=== PATIENT | female | born 1975 | race Caucasian/White ===

== ENCOUNTER 2017-10-13 12:09 | Emergency (ER) | payer OTHER ==
[~2017-10-13] VITALS: Ht 167.6 cm; Wt 90.9 kg
[~2017-10-13 12:09] MED LIST: AMLO-512 PO; DSS100 PO; DULO30CA2 PO; GABA-531 PO; LISI-662 PO; MONT10TA21 PO; PSYL174P2 PO
[2017-10-13] MEDS ORDERED: PARO20TA24 PO (12:23)
[2017-10-13] MEDS ORDERED: BUPR100 PO (12:23)
[2017-10-13] MEDS ORDERED: IPRA4AER IH (12:23)
[2017-10-13] MEDS ORDERED: DEXAMETHASONE SOD PHOS 4 MG/ML 5 ML VIAL IM ONE (14:30)
[2017-10-13] MEDS ORDERED: ALBUTEROL SULFATE 5 MG/ML 20 ML NEB SOLN [BULK] NEB ONE (14:30)
[2017-10-13] MEDS ORDERED: IPRATROPIUM BROMIDE 0.5 MG/2.5 ML NEB SOLUTION NEB ONE (14:30)
[2017-10-13 15:20] VITALS: BP 157/94
== END 2017-10-13 15:30 | disposition home or self-care (01) ==
LOC: EMS 12:11
DX: J45.901 Unspecified asthma with (acute) exacerbation (principal); F32.9 Major depressive disorder, single episode, unspecified; Z90.49 Acquired absence of other specified parts of digestive tract
CPT/HCPCS: 94644; 96372; 99285; J1100; J7611

== ENCOUNTER 2018-03-26 08:08 | Inpatient (IN) | payer MEDICAID, OTHER ==
[~2018-03-26] VITALS: Ht 167.6 cm; Wt 99.1 kg
[2018-03-26] VITALS (15 sets, daily range): BP systolic 138–152; BP diastolic 76–86
[~2018-03-26 08:08] MED LIST changes: -AMLO-512 PO; +BUPR100 PO; -DSS100 PO; -DULO30CA2 PO; +IPRA4AER IH; -LISI-662 PO; -MONT10TA21 PO; +PARO20TA24 PO; -PSYL174P2 PO
[2018-03-26] MEDS ORDERED: HYDR-305 PO (08:24)
[2018-03-26] MEDS ORDERED: GABA-533 PO (08:24)
[2018-03-26 09:13] LABS: EOSINOPHILS % (AUTO) 3.5 % (1.0-6.0); HEMATOCRIT 44.8 % (36-46); HEMOGLOBIN 15.9 g/dL (12.0-16.0); LYMPHOCYTES # (AUTO) 1.6 K/uL (1.0-4.8); LYMPHOCYTES % (AUTO) 27.3 % (22.0-44.0); MEAN CORPUSCULAR HEMOGLOBIN 33.1 pg (26.0-34.0); MEAN CORPUSCULAR HGB CONC 35.4 G/dL (31.0-37.0); MEAN CORPUSCULAR VOLUME 94 fL (80-100); MONOCYTES # (AUTO) 0.4 K/uL (0.1-1.0); MONOCYTES % (AUTO) 6.3 % (2.0-9.0); NEUTROPHILS # (AUTO) 3.6 K/uL (1.8-7.7); NEUTROPHILS % (AUTO) 61.9 % (40.0-70.0); PLATELET COUNT (AUTO) 233 K/uL (150-450); RED CELL DISTRIBUTION WIDTH 12.8 % (11.5-14.5)
[2018-03-26 09:26] LABS: ANION GAP 7 mmol/L (8-16); CALCIUM, TOTAL 8.5 mg/dL (8.8-10.5); CARBON DIOXIDE 28 mmol/L (22-29); CHLORIDE 108 mmol/L (98-107); CREATININE 0.83 mg/dL (0.60-1.30); GLOMERULAR FILTR. RATE CALC > 60 mL/min (>60); GLUCOSE,RANDOM 99 mg/dL (70-110); POTASSIUM 3.7 mmol/L (3.5-5.1); SODIUM SERUM 143 mmol/L (136-145); UREA NITROGEN, BLOOD 17 mg/dL (7-18)
[2018-03-26 09:32] LABS: ALANINE AMINOTRANSFERASE 21 U/L (12-78); ALBUMIN 3.9 g/dL (3.4-5.0); ALKALINE PHOSPHATASE 119 U/L (46-116); ASPARTATE AMINOTRANSFERASE 15 U/L (15-37); BILIRUBIN,TOTAL 0.5 mg/dL (0.1-1.0); TOTAL PROTEIN, SERUM 7.6 g/dL (6.4-8.2)
[2018-03-26] MEDS ORDERED: HALOPERIDOL 5 MG TABLET PO PRN (10:45)
[2018-03-26] MEDS ORDERED: LORazepam 2 MG TABLET PO PRN (10:45)
[2018-03-26] MEDS ORDERED: ChlordiazePOXIDE HCL 25 MG CAPSULE PO ONE (10:45)
[2018-03-26] MEDS ORDERED: SODIUM CHLORIDE 0.9% 1,000 ML IV ONE (10:45)
[2018-03-26] MEDS ORDERED: ONDANSETRON HCL 4 MG/2 ML VIAL IVP ONE (10:45)
[2018-03-26] MEDS ORDERED: ZOLPIDEM TARTRATE 10 MG TABLET PO PRN (10:45)
[2018-03-26 11:13] LABS: AMPHET/METH SCREEN,URINE NEGATIVE (NEGATIVE); BARBITURATE SCREEN, URINE NEGATIVE (NEGATIVE); BENZODIAZEPINES SCREEN,URINE NEGATIVE (NEGATIVE); CANNABINOID SCREEN,URINE NEGATIVE (NEGATIVE); COCAINE SCREEN,URINE NEGATIVE (NEGATIVE); METHADONE SCREEN, URINE NEGATIVE (NEGATIVE); OPIATE SCREEN,URINE POSITIVE (NEGATIVE)
[2018-03-26 11:15] LABS: PHENCYCLIDINE SCREEN,URINE NEGATIVE (NEGATIVE)
[2018-03-26] MEDS ORDERED: AMOX TR/POT CLAV 875 MG/125 MG TABLET PO ONE (11:15)
[2018-03-26] MEDS ORDERED: KETOROLAC TROMETHAMINE 30 MG/ML VIAL IVP ONE (11:15)
[2018-03-26] MEDS ORDERED: GuaiFENesin/D-METHORPHAN [SUGAR-FREE] 200-20MG/10 ML SYRUP UDCUP PO PRN (13:30)
[2018-03-26] MEDS ORDERED: LOPERAMIDE HCL 2 MG CAPSULE PO PRN (13:30)
[2018-03-26] MEDS ORDERED: HydrOXYzine PAMOATE 50 MG CAPSULE PO PRN (13:30)
[2018-03-26] MEDS ORDERED: CYANOCOBALAMIN 1,000 MCG/ML VIAL IM ONE (13:30)
[2018-03-26] MEDS: FOLIC ACID 1 MG TABLET PO SCH (13:49)
[2018-03-26] MEDS: MULTIVITAMINS WITH MINERALS, THERAPEUTIC TABLET PO SCH (13:49)
[2018-03-26] MEDS: AmLODIPine BESYLATE 10 MG TABLET PO SCH (13:49)
[2018-03-26] MEDS: THIAMINE HCL 100 MG TABLET PO SCH (16:17)
[2018-03-26] MEDS: ALBUTEROL SULFATE HFA 90 MCG/PUFF 8 GM INHALER IH PRN (16:17)
[2018-03-26] MEDS: LISINOPRIL 20 MG TABLET PO SCH (16:17)
[2018-03-26] MEDS: NAPROXEN 500 MG TABLET PO PRN (16:19)
[2018-03-26] MEDS: LORazepam 2 MG TABLET PO PRN ×2 (16:19→18:33)
[2018-03-26] MEDS: TraZODone HCL 100 MG TABLET PO SCH (20:10)
[2018-03-27] VITALS (7 sets, daily range): BP systolic 104–158; BP diastolic 67–101
[2018-03-27] MEDS ORDERED: LORazepam 2 MG TABLET PO PRN (07:00)
[2018-03-27] MEDS: FOLIC ACID 1 MG TABLET PO SCH (08:27)
[2018-03-27] MEDS: THIAMINE HCL 100 MG TABLET PO SCH ×2 (08:28→17:14)
[2018-03-27] MEDS: GABAPENTIN 400 MG CAPSULE PO SCH ×3 (08:28→17:14)
[2018-03-27] MEDS: MULTIVITAMINS WITH MINERALS, THERAPEUTIC TABLET PO SCH (08:28)
[2018-03-27] MEDS: PARoxetine HCL 20 MG TABLET PO SCH (08:29)
[2018-03-27] MEDS: LORazepam 2 MG TABLET PO SCH ×4 (08:29→20:31)
[2018-03-27] MEDS: AmLODIPine BESYLATE 10 MG TABLET PO SCH (08:30)
[2018-03-27] MEDS: LISINOPRIL 20 MG TABLET PO SCH ×2 (08:31→17:14)
[2018-03-27] MEDS: BuPROPion HCL 100 MG SR TABLET PO SCH ×2 (08:31→17:21)
[2018-03-27] MEDS: ALBUTEROL SULFATE HFA 90 MCG/PUFF 8 GM INHALER IH PRN ×2 (12:32→20:36)
[2018-03-27] MEDS: TraZODone HCL 100 MG TABLET PO SCH (20:30)
[2018-03-27] MEDS ORDERED: ACETAMINOPHEN 325 MG TABLET PO PRN (21:45)
[2018-03-28] VITALS (7 sets, daily range): BP systolic 115–150; BP diastolic 65–103
[2018-03-28] MEDS: GABAPENTIN 400 MG CAPSULE PO SCH ×3 (08:13→16:33)
[2018-03-28] MEDS: LORazepam 2 MG TABLET PO SCH ×4 (08:13→20:16)
[2018-03-28] MEDS: MULTIVITAMINS WITH MINERALS, THERAPEUTIC TABLET PO SCH (08:13)
[2018-03-28] MEDS: BuPROPion HCL 100 MG SR TABLET PO SCH ×2 (08:13→16:34)
[2018-03-28] MEDS: AmLODIPine BESYLATE 10 MG TABLET PO SCH (08:14)
[2018-03-28] MEDS: LISINOPRIL 20 MG TABLET PO SCH ×2 (08:14→20:46)
[2018-03-28] MEDS: THIAMINE HCL 100 MG TABLET PO SCH ×2 (08:14→16:33)
[2018-03-28] MEDS: PARoxetine HCL 20 MG TABLET PO SCH (08:14)
[2018-03-28] MEDS: FOLIC ACID 1 MG TABLET PO SCH (08:14)
[2018-03-28] MEDS: DOCUSATE SODIUM 100 MG CAPSULE PO SCH ×2 (08:14→16:33)
[2018-03-28] MEDS ORDERED: GABAPENTIN 400 MG CAPSULE PO SCH (09:00)
[2018-03-28] MEDS: ALBUTEROL SULFATE/IPRATROPIUM 100-20 MCG/SPRAY 4 GM INHALER IH PRN (11:39)
[2018-03-28] MEDS: TraZODone HCL 100 MG TABLET PO SCH (20:16)
[2018-03-29 06:42] VITALS: BP 140/89
[2018-03-29] MEDS ORDERED: LORazepam 1 MG TABLET PO PRN (07:00)
[2018-03-29 08:00] VITALS: BP 141/104
[2018-03-29] MEDS: MULTIVITAMINS WITH MINERALS, THERAPEUTIC TABLET PO SCH (08:52)
[2018-03-29] MEDS: LISINOPRIL 20 MG TABLET PO SCH ×2 (08:52→16:14)
[2018-03-29] MEDS: AmLODIPine BESYLATE 10 MG TABLET PO SCH (08:52)
[2018-03-29] MEDS: FOLIC ACID 1 MG TABLET PO SCH (08:52)
[2018-03-29] MEDS: PARoxetine HCL 20 MG TABLET PO SCH (08:52)
[2018-03-29] MEDS: THIAMINE HCL 100 MG TABLET PO SCH ×2 (08:52→16:13)
[2018-03-29] MEDS: BuPROPion HCL 100 MG SR TABLET PO SCH ×2 (08:53→16:14)
[2018-03-29] MEDS: IBUPROFEN 400 MG TABLET PO PRN (08:57)
[2018-03-29] MEDS: LORazepam 1 MG TABLET PO SCH ×4 (08:57→20:27)
[2018-03-29] MEDS: DOCUSATE SODIUM 100 MG CAPSULE PO SCH ×2 (08:58→16:13)
[2018-03-29] MEDS: ALBUTEROL SULFATE/IPRATROPIUM 100-20 MCG/SPRAY 4 GM INHALER IH PRN (08:58)
[2018-03-29 10:33] VITALS: BP 141/104
[2018-03-29] MEDS: ALBUTEROL SULFATE HFA 90 MCG/PUFF 8 GM INHALER IH PRN (12:49)
[2018-03-29 13:07] VITALS: BP 146/90
[2018-03-29] MEDS ORDERED: CloNIDine HCL 0.1 MG TABLET PO PRN (13:45)
[2018-03-29] MEDS: AmLODIPine BESYLATE 5 MG TABLET PO SCH (14:01)
[2018-03-29] MEDS: GABAPENTIN 400 MG CAPSULE PO SCH (16:13)
[2018-03-29] MEDS: NAPROXEN 500 MG TABLET PO PRN (16:19)
[2018-03-29 17:19] VITALS: BP 110/72
[2018-03-29 19:39] VITALS: BP 108/79
[2018-03-29] MEDS: TraZODone HCL 100 MG TABLET PO SCH (20:27)
[2018-03-30 00:50] VITALS: BP 119/80
[2018-03-30] MEDS: ALBUTEROL SULFATE HFA 90 MCG/PUFF 8 GM INHALER IH PRN ×3 (00:56→18:21)
[2018-03-30] MEDS: BuPROPion HCL 100 MG SR TABLET PO SCH ×2 (08:02→16:51)
[2018-03-30] MEDS: DOCUSATE SODIUM 100 MG CAPSULE PO SCH ×2 (08:03→16:50)
[2018-03-30] MEDS: PARoxetine HCL 20 MG TABLET PO SCH (08:03)
[2018-03-30] MEDS: FOLIC ACID 1 MG TABLET PO SCH (08:03)
[2018-03-30] MEDS: AmLODIPine BESYLATE 10 MG TABLET PO SCH (08:03)
[2018-03-30] MEDS: THIAMINE HCL 100 MG TABLET PO SCH ×2 (08:03→16:51)
[2018-03-30] MEDS: GABAPENTIN 400 MG CAPSULE PO SCH ×3 (08:03→16:50)
[2018-03-30] MEDS: LISINOPRIL 20 MG TABLET PO SCH ×2 (08:03→16:51)
[2018-03-30] MEDS: MULTIVITAMINS WITH MINERALS, THERAPEUTIC TABLET PO SCH (08:03)
[2018-03-30] MEDS: LORazepam 1 MG TABLET PO PRN ×4 (08:09→21:15)
[2018-03-30] MEDS: AmLODIPine BESYLATE 5 MG TABLET PO SCH (09:37)
[2018-03-30 10:36] VITALS: BP 132/65
[2018-03-30 10:39] VITALS: BP 132/65
[2018-03-30] MEDS: IBUPROFEN 400 MG TABLET PO PRN (11:09)
[2018-03-30 17:03] VITALS: BP 103/61
[2018-03-30 17:05] VITALS: BP 103/61
[2018-03-30] MEDS: TraZODone HCL 100 MG TABLET PO SCH (20:22)
[2018-03-31] MEDS: ALBUTEROL SULFATE HFA 90 MCG/PUFF 8 GM INHALER IH PRN (01:26)
[2018-03-31] MEDS: LORazepam 1 MG TABLET PO PRN (01:43)
[2018-03-31 01:45] VITALS: BP 120/78
[2018-03-31] MEDS: GABAPENTIN 400 MG CAPSULE PO SCH ×2 (08:19→12:27)
[2018-03-31] MEDS: LISINOPRIL 20 MG TABLET PO SCH (08:20)
[2018-03-31] MEDS: THIAMINE HCL 100 MG TABLET PO SCH (08:20)
[2018-03-31] MEDS: PARoxetine HCL 20 MG TABLET PO SCH (08:20)
[2018-03-31] MEDS: MULTIVITAMINS WITH MINERALS, THERAPEUTIC TABLET PO SCH (08:20)
[2018-03-31] MEDS: BuPROPion HCL 100 MG SR TABLET PO SCH (08:21)
[2018-03-31] MEDS: FOLIC ACID 1 MG TABLET PO SCH (08:23)
[2018-03-31] MEDS: DOCUSATE SODIUM 100 MG CAPSULE PO SCH (08:23)
[2018-03-31 09:38] VITALS: BP 142/87
[2018-03-31] MEDS: AmLODIPine BESYLATE 10 MG TABLET PO SCH (10:31)
[2018-03-31] MEDS ORDERED: BUPR100SR PO (10:33)
[2018-03-31] MEDS ORDERED: TRAZ-147 PO (11:13)
[2018-03-31] MEDS ORDERED: LISI-662 PO (11:19)
[2018-03-31] MEDS ORDERED: DSS100 PO (11:19)
[2018-03-31] MEDS ORDERED: AMLO-512 PO (11:19)
== END 2018-03-31 14:15 | disposition home or self-care (01) | DRG 751 ==
LOC: EMS 08:10 → 3EI 11:56
PROVIDERS: ADMIT Psychiatry & Neurology Psychiatry; ATTEND Psychiatry & Neurology Psychiatry
DX: F33.3 Major depressive disorder, recurrent, severe with psychotic symptoms (principal); R45.851 Suicidal ideations; F11.20 Opioid dependence, uncomplicated; I10 Essential (primary) hypertension; F10.239 Alcohol dependence with withdrawal, unspecified; F17.200 Nicotine dependence, unspecified, uncomplicated; F19.90 Other psychoactive substance use, unspecified, uncomplicated; F41.9 Anxiety disorder, unspecified; G25.81 Restless legs syndrome; M54.9 Dorsalgia, unspecified; R45.87 Impulsiveness; G89.29 Other chronic pain; J45.909 Unspecified asthma, uncomplicated; K59.09 Other constipation; M51.36 Other intervertebral disc degeneration, lumbar region; Z90.49 Acquired absence of other specified parts of digestive tract; Z79.899 Other long term (current) drug therapy; Z91.5 Personal history of self-harm; Z71.6 Tobacco abuse counseling
CPT/HCPCS: 84443; 96374; 99285; G0480; J1885; J2405; J3420; J3535

== ENCOUNTER 2018-08-24 14:10 | Emergency (ER) | payer MEDICAID, OTHER ==
[~2018-08-24] VITALS: Ht 167.6 cm; Wt 90.9 kg
[~2018-08-24 14:10] MED LIST changes: +AMLO-512 PO; -BUPR100 PO; +BUPR100SR PO; +DSS100 PO; -GABA-531 PO; +GABA-533 PO; -IPRA4AER IH; +LISI-662 PO; +TRAZ-220 PO
[2018-08-24 14:18] VITALS: BP 152/92
[2018-08-24] MEDS ORDERED: OXYC-522 PO (14:22)
[2018-08-24] MEDS ORDERED: HYDROCODONE/ACETAMINOPHEN 5-325 MG TABLET PO ONE (18:00)
[2018-08-24] MEDS ORDERED: OXYC-530 PO (18:06)
== END 2018-08-24 18:30 | disposition home or self-care (01) ==
LOC: EMS 14:11
DX: R51 Headache (principal); J34.89 Other specified disorders of nose and nasal sinuses; R68.83 Chills (without fever); J45.909 Unspecified asthma, uncomplicated; F32.9 Major depressive disorder, single episode, unspecified; Z90.49 Acquired absence of other specified parts of digestive tract; Z79.899 Other long term (current) drug therapy

== ENCOUNTER 2018-10-12 08:02 | Emergency (ER) | payer OTHER ==
[~2018-10-12] VITALS: Ht 167.6 cm; Wt 90.9 kg
[~2018-10-12 08:02] MED LIST changes: -AMLO-512 PO; -DSS100 PO; +OXYC-530 PO
[2018-10-12 08:21] LABS: APPEARANCE,URINE CLOUDY (CLEAR); BILIRUBIN,URINE NEGATIVE (NEGATIVE); GLUCOSE, URINE (UA) NEGATIVE (NEGATIVE); KETONES,URINE TRACE mg/dL (NEGATIVE); LEUKOCYTE ESTERASE ,URINE MODERATE (NEGATIVE); NITRATE,URINE POSITIVE (NEGATIVE); OCCULT BLOOD,URINE TRACE (NEGATIVE); PROTEIN,URINE NEGATIVE (NEGATIVE)
[2018-10-12 08:32] LABS: BACTERIA,URINE Moderate /HPF (None Seen); RBC,URINE 0-2 /HPF (0-2); SQUAMOUS EPITHELIAL CELL,UR Few /LPF (None Seen); WBC,URINE 51-100 /HPF (0-5)
[2018-10-12 09:23] VITALS: BP 135/82
== END 2018-10-12 09:27 | disposition home or self-care (01) ==
LOC: EMS 08:03
DX: N39.0 Urinary tract infection, site not specified (principal); F10.239 Alcohol dependence with withdrawal, unspecified; F11.23 Opioid dependence with withdrawal
CPT/HCPCS: 87086

== ENCOUNTER 2018-10-18 18:52 | Emergency (ER) | payer OTHER ==
[~2018-10-18] VITALS: Ht 167.6 cm; Wt 90.9 kg
[2018-10-18] MEDS ORDERED: ALBU8HFA IH (19:38)
[2018-10-18] MEDS ORDERED: HYDR-4455 PO (19:38)
[2018-10-18] MEDS ORDERED: ADV100 IH (19:38)
[2018-10-18 21:08] LABS: APPEARANCE,URINE CLEAR (CLEAR); BILIRUBIN,URINE NEGATIVE (NEGATIVE); GLUCOSE, URINE (UA) NEGATIVE (NEGATIVE); KETONES,URINE NEGATIVE (NEGATIVE); LEUKOCYTE ESTERASE ,URINE TRACE (NEGATIVE); NITRATE,URINE NEGATIVE (NEGATIVE); OCCULT BLOOD,URINE NEGATIVE (NEGATIVE); PROTEIN,URINE NEGATIVE (NEGATIVE); UROBILINOGEN,URINE 0.2 mg/dL (<=1.0)
[2018-10-18 21:28] LABS: BACTERIA,URINE None Seen /HPF (None Seen); RBC,URINE None Seen /HPF (0-2); SQUAMOUS EPITHELIAL CELL,UR Few /LPF (None Seen); WBC,URINE 0-2 /HPF (0-5)
[2018-10-18 21:50] VITALS: BP 168/107
[2018-10-18] MEDS ORDERED: OxyCODONE HCL/ACETAMINOPHEN 5-325 MG TABLET PO ONE (22:00)
[2018-10-18] MEDS ORDERED: DIAZEPAM 5 MG TABLET PO ONE (22:00)
== END 2018-10-18 22:10 | disposition home or self-care (01) ==
LOC: EMS 18:54
DX: M54.5 Low back pain (principal); F32.9 Major depressive disorder, single episode, unspecified; J45.909 Unspecified asthma, uncomplicated; F11.90 Opioid use, unspecified, uncomplicated

== ENCOUNTER 2018-11-30 17:39 | Emergency (ER) | payer OTHER ==
[~2018-11-30] VITALS: Ht 167.6 cm; Wt 79.5 kg
[~2018-11-30 17:39] MED LIST changes: +ADV100 IH; +ALBU8HFA IH; -BUPR100SR PO; -GABA-533 PO; +HYDR-4455 PO; -LISI-662 PO; -OXYC-530 PO; -PARO20TA24 PO; -TRAZ-220 PO
[2018-11-30 18:53] LABS: BASOPHILS % (AUTO) 0.4 % (0.0-2.0); EOSINOPHILS % (AUTO) 2.1 % (1.0-6.0); HEMATOCRIT 42.7 % (36-46); HEMOGLOBIN 14.6 g/dL (12.0-16.0); LYMPHOCYTES # (AUTO) 1.3 K/uL (1.0-4.8); LYMPHOCYTES % (AUTO) 14.3 % (22.0-44.0); MEAN CORPUSCULAR HEMOGLOBIN 32.5 pg (26.0-34.0); MEAN CORPUSCULAR HGB CONC 34.3 G/dL (31.0-37.0); MEAN CORPUSCULAR VOLUME 95 fL (80-100); MONOCYTES # (AUTO) 0.5 K/uL (0.1-1.0); MONOCYTES % (AUTO) 5.4 % (2.0-9.0); NEUTROPHILS # (AUTO) 7.3 K/uL (1.8-7.7); NEUTROPHILS % (AUTO) 77.8 % (40.0-70.0); PLATELET COUNT (AUTO) 246 K/uL (150-450); RED BLOOD CELL COUNT(AUTO) 4.51 MIL/uL (4.00-5.20); RED CELL DISTRIBUTION WIDTH 12.6 % (11.5-14.5)
[2018-11-30 19:02] LABS: ANION GAP 9 mmol/L (8-16); CALCIUM, TOTAL 8.6 mg/dL (8.8-10.5); CARBON DIOXIDE 25 mmol/L (22-29); CHLORIDE 99 mmol/L (98-107); CREATININE 0.58 mg/dL (0.60-1.30); GLOMERULAR FILTR. RATE CALC > 60 mL/min (>60); GLUCOSE,RANDOM 106 mg/dL (70-110); POTASSIUM 3.4 mmol/L (3.5-5.1); SODIUM SERUM 133 mmol/L (136-145); UREA NITROGEN, BLOOD 11 mg/dL (7-18)
[2018-11-30 19:12] LABS: AMPHET/METH SCREEN,URINE NEGATIVE (NEGATIVE); BARBITURATE SCREEN, URINE NEGATIVE (NEGATIVE); BENZODIAZEPINES SCREEN,URINE POSITIVE (NEGATIVE); CANNABINOID SCREEN,URINE NEGATIVE (NEGATIVE); COCAINE SCREEN,URINE NEGATIVE (NEGATIVE); METHADONE SCREEN, URINE NEGATIVE (NEGATIVE); OPIATE SCREEN,URINE POSITIVE (NEGATIVE)
[2018-11-30 19:14] LABS: PHENCYCLIDINE SCREEN,URINE NEGATIVE (NEGATIVE)
[2018-11-30 19:15] LABS: ALANINE AMINOTRANSFERASE 19 U/L (12-78); ALBUMIN 3.6 g/dL (3.4-5.0); ALKALINE PHOSPHATASE 114 U/L (46-116); ASPARTATE AMINOTRANSFERASE 31 U/L (15-37); BILIRUBIN,TOTAL 0.5 mg/dL (0.1-1.0); HCG,QUANTITATIVE < 1 mIU/mL (0-6); TOTAL PROTEIN, SERUM 7.1 g/dL (6.4-8.2)
[2018-11-30] MEDS ORDERED: LORazepam 1 MG TABLET PO ONE (21:45)
[2018-11-30] MEDS ORDERED: ONDANSETRON HCL 4 MG/2 ML VIAL IM ONE (21:45)
[2018-11-30] MEDS ORDERED: POTASSIUM CHLORIDE 20 MEQ ER TABLET PO ONE (21:45)
[2018-11-30 22:01] VITALS: BP 149/80
== END 2018-11-30 22:04 | disposition home or self-care (01) ==
LOC: EMS 17:40
DX: F41.9 Anxiety disorder, unspecified (principal); R11.2 Nausea with vomiting, unspecified; F10.20 Alcohol dependence, uncomplicated; F11.90 Opioid use, unspecified, uncomplicated; J45.909 Unspecified asthma, uncomplicated; F32.9 Major depressive disorder, single episode, unspecified; G89.29 Other chronic pain; Z90.49 Acquired absence of other specified parts of digestive tract; Y90.0 Blood alcohol level of less than 20 mg/100 ml
CPT/HCPCS: 36415; 71045; 80053; 80307; 84484; 84702; 85025; 93005; 96372; 99284; G0480; J2405

== ENCOUNTER 2018-12-29 07:37 | Emergency (ER) | payer OTHER ==
[~2018-12-29] VITALS: Ht 167.6 cm; Wt 93.2 kg
[~2018-12-29 07:37] MED LIST changes: -HYDR-4455 PO
[2018-12-29] MEDS ORDERED: 0.9% SODIUM CHLORIDE 5 ML NEB SOLUTION NEB ONE (07:58)
[2018-12-29] MEDS ORDERED: ALBUTEROL SULFATE 5 MG/ML 20 ML NEB SOLN [BULK] NEB ONE (08:00)
[2018-12-29] MEDS ORDERED: IPRATROPIUM BROMIDE 0.5 MG/2.5 ML NEB SOLUTION NEB ONE ×2 (08:00→10:45)
[2018-12-29] MEDS ORDERED: ALBUTEROL SULFATE 2.5 MG/0.5 ML NEB SOLUTION NEB ONE (10:45)
[2018-12-29] MEDS ORDERED: PredniSONE 20 MG TABLET PO ONE (11:30)
[2018-12-29] MEDS ORDERED: ALBUTEROL SULFATE HFA 90 MCG/PUFF 8 GM INHALER IH ONE (11:45)
[2018-12-29 11:59] VITALS: BP 131/85
== END 2018-12-29 12:03 | disposition home or self-care (01) ==
LOC: EMS 07:39
DX: J45.901 Unspecified asthma with (acute) exacerbation (principal); F32.9 Major depressive disorder, single episode, unspecified; G89.29 Other chronic pain; F11.90 Opioid use, unspecified, uncomplicated; Z90.49 Acquired absence of other specified parts of digestive tract
CPT/HCPCS: 71045; 94640; 94644; 99285; J7512; J3535

== ENCOUNTER 2020-01-17 19:54 | Emergency (ER) | payer OTHER ==
[~2020-01-17] VITALS: Ht 167.6 cm; Wt 90.9 kg
[2020-01-17 19:57] VITALS: BP 152/89
== END 2020-01-17 21:20 | disposition left against medical advice (07) ==
LOC: EMS 19:55
DX: M25.561 Pain in right knee (principal); Z53.21 Procedure and treatment not carried out due to patient leaving prior to being seen by health care provider

== ENCOUNTER 2020-08-02 13:08 | Inpatient (IN) | payer OTHER ==
[~2020-08-02] VITALS: Ht 175.3 cm; Wt 97.4 kg
[~2020-08-02 13:08] MED LIST changes: -ADV100 IH; +FLUT1DIS4 IH
[2020-08-02 14:01] LABS: BASOPHILS % (AUTO) 0.6 % (0.0-2.0); EOSINOPHILS % (AUTO) 0.3 % (1.0-6.0); HEMOGLOBIN 16.2 g/dL (12.0-16.0); LYMPHOCYTES # (AUTO) 1.6 K/uL (1.0-4.8); LYMPHOCYTES % (AUTO) 16.8 % (22.0-44.0); MEAN CORPUSCULAR HEMOGLOBIN 34.8 pg (26.0-34.0); MEAN CORPUSCULAR HGB CONC 34.5 G/dL (31.0-37.0); MEAN CORPUSCULAR VOLUME 101 fL (80-100); MONOCYTES # (AUTO) 0.3 K/uL (0.1-1.0); MONOCYTES % (AUTO) 2.9 % (2.0-9.0); NEUTROPHILS # (AUTO) 7.7 K/uL (1.8-7.7); NEUTROPHILS % (AUTO) 79.4 % (40.0-70.0); PLATELET COUNT (AUTO) 118 K/uL (150-450); RED BLOOD CELL COUNT(AUTO) 4.66 MIL/uL (4.00-5.20); RED CELL DISTRIBUTION WIDTH 14.6 % (11.5-14.5)
[2020-08-02 14:13] LABS: ANION GAP 15 mmol/L (8-16); CALCIUM, TOTAL 7.8 mg/dL (8.8-10.5); CARBON DIOXIDE 24 mmol/L (22-29); CHLORIDE 100 mmol/L (98-107); CREATININE 0.88 mg/dL (0.60-1.30); GLOMERULAR FILTR. RATE CALC > 60 mL/min (>60); GLUCOSE,RANDOM 112 mg/dL (70-110); POTASSIUM 3.1 mmol/L (3.5-5.1); SODIUM SERUM 139 mmol/L (136-145); UREA NITROGEN, BLOOD 12 mg/dL (7-18)
[2020-08-02 14:24] LABS: ALANINE AMINOTRANSFERASE 61 U/L (12-78); ALBUMIN 3.8 g/dL (3.4-5.0); ALKALINE PHOSPHATASE 135 U/L (46-116); ASPARTATE AMINOTRANSFERASE 97 U/L (15-37); BILIRUBIN,TOTAL 1.7 mg/dL (0.1-1.0); HCG,QUANTITATIVE 1 mIU/mL (0-6); TOTAL PROTEIN, SERUM 6.9 g/dL (6.4-8.2)
[2020-08-02] MEDS ORDERED: ACETAMINOPHEN 325 MG TABLET ONE (14:27)
[2020-08-02] MEDS ORDERED: ChlordiazePOXIDE HCL 25 MG CAPSULE PO ONE (14:45)
[2020-08-02] MEDS ORDERED: FAMOTIDINE 20 MG TABLET PO ONE (14:45)
[2020-08-02] MEDS ORDERED: PB/HYOSCY/ATR/SCOP/LIDO/MAALOX 55 ML BOTTLE PO ONE (14:45)
[2020-08-02] MEDS ORDERED: POTASSIUM CHLORIDE 20 MEQ ER TABLET PO ONE (15:15)
[2020-08-02 15:45] LABS: CREATINE KINASE, TOTAL ONLY 267 U/L (26-192); LIPASE 1190 U/L (73-393)
[2020-08-02] MEDS ORDERED: KETOROLAC TROMETHAMINE 30 MG/ML VIAL IVP ONE (15:45)
[2020-08-02] MEDS ORDERED: KETOROLAC TROMETHAMINE 30 MG/ML VIAL IM ONE (16:00)
[2020-08-02] MEDS ORDERED: SODIUM CHLORIDE 0.9% 100 ML ONE (16:15)
[2020-08-02] MEDS ORDERED: IOVERSOL 350 MG/ML 150 ML VIAL ONE (16:15)
[2020-08-02] MEDS ORDERED: SODIUM CHLORIDE 0.9% 1,000 ML IV ONE (16:30)
[2020-08-02] MEDS ORDERED: MAGNESIUM SULFATE 2 GM, MVI, ADULT NO.1 WITH VIT K 10 ML, THIAMINE 100 MG, FOLIC ACID 1... IV ONE ×5 (16:30)
[2020-08-02] MEDS ORDERED: BISACODYL 10 MG RECTAL RECTAL SUPPOSITORY PR PRN (16:45)
[2020-08-02] MEDS ORDERED: MAGNESIUM HYDROXIDE SUSPENSION 30 ML UDCUP PO PRN (16:45)
[2020-08-02] MEDS ORDERED: ACETAMINOPHEN 325 MG TABLET PO PRN (16:45)
[2020-08-02] MEDS ORDERED: ONDANSETRON HCL 4 MG/2 ML VIAL IVP PRN (16:45)
[2020-08-02] MEDS ORDERED: LORazepam 2 MG/ML VIAL IM PRN (17:30)
[2020-08-02] MEDS: MORPHINE SULFATE 2 MG/ML SYRINGE IVP PRN ×2 (17:43→21:51)
[2020-08-02] MEDS: HYDROCODONE/ACETAMINOPHEN 5-325 MG TABLET PO PRN ×2 (19:15→23:37)
[2020-08-02] MEDS: LABETALOL HCL 5 MG/ML 20 ML VIAL IVP PRN (19:21)
[2020-08-02] MEDS: DOCUSATE SODIUM 100 MG CAPSULE PO SCH (21:00)
[2020-08-02 21:15] VITALS: BP 153/102
[2020-08-02] MEDS: ZOLPIDEM TARTRATE 5 MG TABLET PO PRN (21:57)
[2020-08-02] MEDS: HEPARIN SODIUM,PORCINE 5,000 UNITS/ML VIAL SQ SCH (23:44)
[2020-08-03] MEDS: MORPHINE SULFATE 2 MG/ML SYRINGE IVP PRN ×2 (01:54→06:04)
[2020-08-03] MEDS ORDERED: INFLUENZA VIRUS VACCINE QVS 2020-21 (6MO+)/PF 60 MCG/0.5 ML SYRINGE IM ONE (03:00)
[2020-08-03] MEDS: HYDROCODONE/ACETAMINOPHEN 5-325 MG TABLET PO PRN (04:08)
[2020-08-03] MEDS: LABETALOL HCL 5 MG/ML 20 ML VIAL IVP PRN (04:08)
[2020-08-03 04:15] VITALS: BP 157/101
[2020-08-03 06:44] LABS: BASOPHILS % (AUTO) 0.2 % (0.0-2.0); EOSINOPHILS % (AUTO) 0 % (1.0-6.0); HEMATOCRIT 49.7 % (36-46); HEMOGLOBIN 17.3 g/dL (12.0-16.0); LYMPHOCYTES # (AUTO) 0.6 K/uL (1.0-4.8); LYMPHOCYTES % (AUTO) 7.4 % (22.0-44.0); MEAN CORPUSCULAR HEMOGLOBIN 34.9 pg (26.0-34.0); MEAN CORPUSCULAR HGB CONC 34.8 G/dL (31.0-37.0); MEAN CORPUSCULAR VOLUME 100 fL (80-100); MONOCYTES # (AUTO) 0.3 K/uL (0.1-1.0); MONOCYTES % (AUTO) 3.3 % (2.0-9.0); NEUTROPHILS # (AUTO) 7.8 K/uL (1.8-7.7); RED BLOOD CELL COUNT(AUTO) 4.96 MIL/uL (4.00-5.20); RED CELL DISTRIBUTION WIDTH 15.1 % (11.5-14.5)
[2020-08-03 06:45] LABS: NEUTROPHILS % (AUTO) 89.1 % (40.0-70.0); PLATELET COUNT (AUTO) 100 K/uL (150-450)
[2020-08-03 07:01] LABS: ALBUMIN 3.3 g/dL (3.4-5.0); BILIRUBIN,TOTAL 2.6 mg/dL (0.1-1.0); CALCIUM, TOTAL 7.2 mg/dL (8.8-10.5); CREATININE 1.02 mg/dL (0.60-1.30); POTASSIUM 3.3 mmol/L (3.5-5.1); TOTAL PROTEIN, SERUM 6.3 g/dL (6.4-8.2)
[2020-08-03] MEDS ORDERED: GADOBUTROL 1 MMOL/ML 10 ML VIAL IVP ONE (07:48)
[2020-08-03 07:49] VITALS: BP 151/113
[2020-08-03] MEDS ORDERED: PANTOPRAZOLE SODIUM 40 MG DR TABLET PO SCH (09:00)
[2020-08-03] MEDS: DOCUSATE SODIUM 100 MG CAPSULE PO SCH (09:00)
[2020-08-03] MEDS ORDERED: MORPHINE SULFATE 4 MG/ML SYRINGE IVP PRN (09:30)
[2020-08-03] MEDS: HEPARIN SODIUM,PORCINE 5,000 UNITS/ML VIAL SQ SCH ×2 (10:32→16:45)
[2020-08-03 10:45] VITALS: BP 152/100
[2020-08-03] MEDS: HYDROmorphone 2 MG/ML SYRINGE IVP PRN ×4 (11:09→21:13)
[2020-08-03] MEDS ORDERED: SODIUM CHLORIDE 0.9% 1,000 ML ONE (11:10)
[2020-08-03] MEDS ORDERED: DOCUSATE SODIUM 100 MG CAPSULE PO PRN (11:15)
[2020-08-03] MEDS ORDERED: IPRATROPIUM BROMIDE 0.5 MG/2.5 ML NEB SOLUTION NEB PRN (11:15)
[2020-08-03] MEDS ORDERED: ALBUTEROL SULFATE 2.5 MG/0.5 ML NEB SOLUTION NEB PRN (11:15)
[2020-08-03] MEDS: PANTOPRAZOLE SODIUM 40 MG/VIAL IVP SCH (11:33)
[2020-08-03] MEDS: POTASSIUM CHL 10 MEQ/WATER 50 ML IV PRN ×3 (11:33→15:31)
[2020-08-03] MEDS: IPRATROPIUM BROMIDE 0.5 MG/2.5 ML NEB SOLUTION NEB SCH ×3 (13:00→20:48)
[2020-08-03] MEDS: ALBUTEROL SULFATE 2.5 MG/0.5 ML NEB SOLUTION NEB SCH ×3 (13:00→20:48)
[2020-08-03 13:21] VITALS: BP 139/106
[2020-08-03] MEDS ORDERED: LORazepam 2 MG/ML VIAL IVP ONE ×2 (14:45)
[2020-08-03 16:24] VITALS: BP 145/74
[2020-08-03] MEDS: 1: MAGNESIUM SULFATE 2 GM, MVI, ADULT NO.1 WITH VIT K 10 ML, THIAMINE 100 MG, FOLIC ACID IV SCH ×5 (16:45)
[2020-08-03 19:25] VITALS: BP 137/83
[2020-08-03] MEDS: ZOLPIDEM TARTRATE 5 MG TABLET PO PRN (21:13)
[2020-08-04] MEDS ORDERED: SODIUM CHLORIDE 0.9% 0 ML ONE (00:04)
[2020-08-04] MEDS: HEPARIN SODIUM,PORCINE 5,000 UNITS/ML VIAL SQ SCH ×2 (00:33→08:06)
[2020-08-04] MEDS: 1: MAGNESIUM SULFATE 2 GM, MVI, ADULT NO.1 WITH VIT K 10 ML, THIAMINE 100 MG, FOLIC ACID IV SCH ×20 (00:33→21:43)
[2020-08-04] MEDS: HYDROmorphone 2 MG/ML SYRINGE IVP PRN ×7 (01:18→20:36)
[2020-08-04 04:48] VITALS: BP 143/101
[2020-08-04 06:57] LABS: ALANINE AMINOTRANSFERASE 36 U/L (12-78); ALBUMIN 2.5 g/dL (3.4-5.0); ALKALINE PHOSPHATASE 82 U/L (46-116); ANION GAP 12 mmol/L (8-16); ASPARTATE AMINOTRANSFERASE 72 U/L (15-37); BILIRUBIN,TOTAL 2.1 mg/dL (0.1-1.0); CALCIUM, TOTAL 6.8 mg/dL (8.8-10.5); CARBON DIOXIDE 20 mmol/L (22-29); CHLORIDE 109 mmol/L (98-107); CHOL/HDL RATIO 6.6 (3.9-5.7); CHOLESTEROL 113 mg/dL (131-200); CREATININE 0.95 mg/dL (0.60-1.30); FREE T4 (FREE THYROXINE) 0.87 ng/dL (0.76-1.46); GLOMERULAR FILTR. RATE CALC > 60 mL/min (>60); GLUCOSE,RANDOM 94 mg/dL (70-110); HDL CHOLESTEROL 17 mg/dL (40-60); LDL CHOL (CALC.) 42 mg/dL (0-130); LIPASE 994 U/L (73-393); POTASSIUM 4.1 mmol/L (3.5-5.1); SODIUM SERUM 141 mmol/L (136-145); THYROID STIMULATING HORMONE 3.37 uIU/mL (0.36-3.74); TOTAL PROTEIN, SERUM 5.6 g/dL (6.4-8.2); TRIGLYCERIDES 269 mg/dL (15-150); UREA NITROGEN, BLOOD 23 mg/dL (7-18)
[2020-08-04 07:06] LABS: BASOPHILS % (AUTO) 0.2 % (0.0-2.0); EOSINOPHILS % (AUTO) 0.4 % (1.0-6.0); HEMOGLOBIN 15.5 g/dL (12.0-16.0); LYMPHOCYTES # (AUTO) 0.7 K/uL (1.0-4.8); LYMPHOCYTES % (AUTO) 12.1 % (22.0-44.0); MEAN CORPUSCULAR HEMOGLOBIN 34.5 pg (26.0-34.0); MEAN CORPUSCULAR HGB CONC 33.7 G/dL (31.0-37.0); MEAN CORPUSCULAR VOLUME 102 fL (80-100); MONOCYTES # (AUTO) 0.3 K/uL (0.1-1.0); MONOCYTES % (AUTO) 4.9 % (2.0-9.0); NEUTROPHILS # (AUTO) 5.1 K/uL (1.8-7.7); NEUTROPHILS % (AUTO) 82.4 % (40.0-70.0); PLATELET COUNT (AUTO) 63 K/uL (150-450); RED BLOOD CELL COUNT(AUTO) 4.49 MIL/uL (4.00-5.20); RED CELL DISTRIBUTION WIDTH 14.9 % (11.5-14.5)
[2020-08-04 07:20] VITALS: BP 129/86
[2020-08-04] MEDS ORDERED: SODIUM CHLORIDE 0.9% 1,000 ML ONE (07:35)
[2020-08-04] MEDS: ALBUTEROL SULFATE 2.5 MG/0.5 ML NEB SOLUTION NEB SCH ×4 (07:54→20:40)
[2020-08-04] MEDS: IPRATROPIUM BROMIDE 0.5 MG/2.5 ML NEB SOLUTION NEB SCH ×4 (07:54→20:40)
[2020-08-04] MEDS: PANTOPRAZOLE SODIUM 40 MG/VIAL IVP SCH (08:06)
[2020-08-04 11:55] VITALS: BP 126/84
[2020-08-04 15:56] VITALS: BP 124/80
[2020-08-04 19:52] VITALS: BP 152/89
[2020-08-05] VITALS (7 sets, daily range): BP systolic 137–162; BP diastolic 84–100
[2020-08-05] MEDS: HYDROmorphone 2 MG/ML SYRINGE IVP PRN ×7 (00:28→23:04)
[2020-08-05] MEDS: ZOLPIDEM TARTRATE 5 MG TABLET PO PRN ×2 (00:29→21:17)
[2020-08-05] MEDS: 1: MAGNESIUM SULFATE 2 GM, MVI, ADULT NO.1 WITH VIT K 10 ML, THIAMINE 100 MG, FOLIC ACID IV SCH ×15 (05:13→21:22)
[2020-08-05 06:25] LABS: ALANINE AMINOTRANSFERASE 32 U/L (12-78); ALBUMIN 2.1 g/dL (3.4-5.0); ALKALINE PHOSPHATASE 72 U/L (46-116); ANION GAP 10 mmol/L (8-16); ASPARTATE AMINOTRANSFERASE 37 U/L (15-37); BILIRUBIN,TOTAL 1.7 mg/dL (0.1-1.0); CALCIUM, TOTAL 7.1 mg/dL (8.8-10.5); CARBON DIOXIDE 22 mmol/L (22-29); CHLORIDE 111 mmol/L (98-107); CREATININE 0.72 mg/dL (0.60-1.30); GLOMERULAR FILTR. RATE CALC > 60 mL/min (>60); GLUCOSE,RANDOM 78 mg/dL (70-110); LIPASE 315 U/L (73-393); POTASSIUM 3.9 mmol/L (3.5-5.1); SODIUM SERUM 143 mmol/L (136-145); TOTAL PROTEIN, SERUM 5.3 g/dL (6.4-8.2); UREA NITROGEN, BLOOD 17 mg/dL (7-18)
[2020-08-05 06:41] LABS: BASOPHILS % (AUTO) 0.3 % (0.0-2.0); EOSINOPHILS % (AUTO) 1.2 % (1.0-6.0); HEMATOCRIT 38.8 % (36-46); LYMPHOCYTES # (AUTO) 0.6 K/uL (1.0-4.8); LYMPHOCYTES % (AUTO) 12.8 % (22.0-44.0); MEAN CORPUSCULAR HEMOGLOBIN 34.7 pg (26.0-34.0); MEAN CORPUSCULAR HGB CONC 33.5 G/dL (31.0-37.0); MEAN CORPUSCULAR VOLUME 104 fL (80-100); MONOCYTES # (AUTO) 0.4 K/uL (0.1-1.0); MONOCYTES % (AUTO) 8.4 % (2.0-9.0); NEUTROPHILS # (AUTO) 3.8 K/uL (1.8-7.7); NEUTROPHILS % (AUTO) 77.3 % (40.0-70.0); PLATELET COUNT (AUTO) 51 K/uL (150-450); RED BLOOD CELL COUNT(AUTO) 3.75 MIL/uL (4.00-5.20)
[2020-08-05] MEDS: PANTOPRAZOLE SODIUM 40 MG/VIAL IVP SCH (08:10)
[2020-08-05] MEDS: IPRATROPIUM BROMIDE 0.5 MG/2.5 ML NEB SOLUTION NEB SCH ×3 (08:13→20:03)
[2020-08-05] MEDS: ALBUTEROL SULFATE 2.5 MG/0.5 ML NEB SOLUTION NEB SCH ×3 (08:13→20:03)
[2020-08-05] MEDS ORDERED: HYDROmorphone HCL 2 MG TABLET PO PRN (11:45)
[2020-08-05] MEDS: FLUTICASONE PROPIONATE 50 MCG/SPRAY 16 GM NASAL SPRAY NASAL SCH ×2 (12:59→19:46)
[2020-08-05] MEDS ORDERED: SODIUM CHLORIDE 0.9% 1,000 ML ONE ×2 (13:02→21:20)
[2020-08-05] MEDS ORDERED: IOVERSOL 350 MG/ML 150 ML VIAL ONE (15:07)
[2020-08-05] MEDS ORDERED: SODIUM CHLORIDE 0.9% 100 ML ONE (15:07)
[2020-08-05] MEDS: LABETALOL HCL 5 MG/ML 20 ML VIAL IVP PRN (15:35)
[2020-08-05] MEDS: HYDROCODONE/ACETAMINOPHEN 5-325 MG TABLET PO PRN (17:51)
[2020-08-06] MEDS: LABETALOL HCL 5 MG/ML 20 ML VIAL IVP PRN ×2 (00:17→08:02)
[2020-08-06] MEDS: HYDROmorphone 2 MG/ML SYRINGE IVP PRN ×9 (02:03→22:29)
[2020-08-06] MEDS ORDERED: SODIUM CHLORIDE 0.9% 1,000 ML ONE ×3 (04:44→22:32)
[2020-08-06] MEDS: 1: MAGNESIUM SULFATE 2 GM, MVI, ADULT NO.1 WITH VIT K 10 ML, THIAMINE 100 MG, FOLIC ACID IV SCH ×20 (04:57→22:33)
[2020-08-06 05:19] VITALS: BP 162/96
[2020-08-06 07:21] LABS: BASOPHILS % (AUTO) 0.4 % (0.0-2.0); EOSINOPHILS % (AUTO) 1.1 % (1.0-6.0); HEMATOCRIT 34.4 % (36-46); HEMOGLOBIN 11.9 g/dL (12.0-16.0); LYMPHOCYTES # (AUTO) 0.6 K/uL (1.0-4.8); LYMPHOCYTES % (AUTO) 11.9 % (22.0-44.0); MEAN CORPUSCULAR HGB CONC 34.6 G/dL (31.0-37.0); MEAN CORPUSCULAR VOLUME 101 fL (80-100); MONOCYTES # (AUTO) 0.7 K/uL (0.1-1.0); MONOCYTES % (AUTO) 13.6 % (2.0-9.0); NEUTROPHILS # (AUTO) 3.7 K/uL (1.8-7.7); PLATELET COUNT (AUTO) 79 K/uL (150-450); RED BLOOD CELL COUNT(AUTO) 3.41 MIL/uL (4.00-5.20); RED CELL DISTRIBUTION WIDTH 14.6 % (11.5-14.5)
[2020-08-06 07:38] VITALS: BP 172/102
[2020-08-06 07:43] LABS: ALANINE AMINOTRANSFERASE 31 U/L (12-78); ALBUMIN 2.1 g/dL (3.4-5.0); ALKALINE PHOSPHATASE 69 U/L (46-116); ANION GAP 13 mmol/L (8-16); ASPARTATE AMINOTRANSFERASE 35 U/L (15-37); BILIRUBIN,TOTAL 1.4 mg/dL (0.1-1.0); CALCIUM, TOTAL 7.2 mg/dL (8.8-10.5); CARBON DIOXIDE 20 mmol/L (22-29); CHLORIDE 102 mmol/L (98-107); CREATININE 0.61 mg/dL (0.60-1.30); GLOMERULAR FILTR. RATE CALC > 60 mL/min (>60); GLUCOSE,RANDOM 65 mg/dL (70-110); LIPASE 174 U/L (73-393); SODIUM SERUM 135 mmol/L (136-145); TOTAL PROTEIN, SERUM 5.3 g/dL (6.4-8.2); UREA NITROGEN, BLOOD 7 mg/dL (7-18)
[2020-08-06 07:47] LABS: POTASSIUM 2.7 mmol/L (3.5-5.1)
[2020-08-06] MEDS: IPRATROPIUM BROMIDE 0.5 MG/2.5 ML NEB SOLUTION NEB SCH ×3 (07:59→20:20)
[2020-08-06] MEDS: ALBUTEROL SULFATE 2.5 MG/0.5 ML NEB SOLUTION NEB SCH ×3 (07:59→20:20)
[2020-08-06] MEDS: FLUTICASONE PROPIONATE 50 MCG/SPRAY 16 GM NASAL SPRAY NASAL SCH ×2 (08:01→20:26)
[2020-08-06] MEDS: PANTOPRAZOLE SODIUM 40 MG/VIAL IVP SCH (08:01)
[2020-08-06] MEDS: POTASSIUM CHL 10 MEQ/WATER 50 ML IV PRN ×4 (08:03→12:09)
[2020-08-06] MEDS ORDERED: SODIUM CHLORIDE 0.9% 250 ML IV ONE (09:09)
[2020-08-06 12:30] VITALS: BP 159/95
[2020-08-06] MEDS: POTASSIUM CHLORIDE 20 MEQ ER TABLET PO PRN ×2 (14:27→20:38)
[2020-08-06 16:33] VITALS: BP 155/84
[2020-08-06 19:42] VITALS: BP 144/89
[2020-08-07] VITALS (7 sets, daily range): BP systolic 134–153; BP diastolic 82–101
[2020-08-07] MEDS: HYDROmorphone 2 MG/ML SYRINGE IVP PRN ×11 (00:51→23:37)
[2020-08-07] MEDS ORDERED: SODIUM CHLORIDE 0.9% 1,000 ML ONE (05:26)
[2020-08-07] MEDS: 1: MAGNESIUM SULFATE 2 GM, MVI, ADULT NO.1 WITH VIT K 10 ML, THIAMINE 100 MG, FOLIC ACID IV SCH ×15 (05:30→21:35)
[2020-08-07 07:13] LABS: BASOPHILS % (AUTO) 0.4 % (0.0-2.0); EOSINOPHILS % (AUTO) 1.8 % (1.0-6.0); HEMATOCRIT 33.5 % (36-46); HEMOGLOBIN 11.7 g/dL (12.0-16.0); LYMPHOCYTES # (AUTO) 0.7 K/uL (1.0-4.8); LYMPHOCYTES % (AUTO) 15.1 % (22.0-44.0); MEAN CORPUSCULAR HEMOGLOBIN 35.3 pg (26.0-34.0); MEAN CORPUSCULAR HGB CONC 34.9 G/dL (31.0-37.0); MEAN CORPUSCULAR VOLUME 101 fL (80-100); MONOCYTES # (AUTO) 0.8 K/uL (0.1-1.0); MONOCYTES % (AUTO) 15.9 % (2.0-9.0); NEUTROPHILS # (AUTO) 3.3 K/uL (1.8-7.7); NEUTROPHILS % (AUTO) 66.8 % (40.0-70.0); PLATELET COUNT (AUTO) 96 K/uL (150-450); RED BLOOD CELL COUNT(AUTO) 3.31 MIL/uL (4.00-5.20); RED CELL DISTRIBUTION WIDTH 14.7 % (11.5-14.5)
[2020-08-07 07:18] LABS: ALANINE AMINOTRANSFERASE 34 U/L (12-78); ALKALINE PHOSPHATASE 69 U/L (46-116); ANION GAP 11 mmol/L (8-16); ASPARTATE AMINOTRANSFERASE 34 U/L (15-37); BILIRUBIN,TOTAL 1.3 mg/dL (0.1-1.0); CALCIUM, TOTAL 7.8 mg/dL (8.8-10.5); CARBON DIOXIDE 21 mmol/L (22-29); CHLORIDE 104 mmol/L (98-107); CREATININE 0.62 mg/dL (0.60-1.30); GLOMERULAR FILTR. RATE CALC > 60 mL/min (>60); GLUCOSE,RANDOM 78 mg/dL (70-110); LIPASE 242 U/L (73-393); POTASSIUM 3.1 mmol/L (3.5-5.1); SODIUM SERUM 136 mmol/L (136-145); TOTAL PROTEIN, SERUM 5.3 g/dL (6.4-8.2); UREA NITROGEN, BLOOD 5 mg/dL (7-18)
[2020-08-07] MEDS: PANTOPRAZOLE SODIUM 40 MG/VIAL IVP SCH (07:55)
[2020-08-07] MEDS: ALBUTEROL SULFATE 2.5 MG/0.5 ML NEB SOLUTION NEB SCH ×4 (07:56→21:20)
[2020-08-07] MEDS: IPRATROPIUM BROMIDE 0.5 MG/2.5 ML NEB SOLUTION NEB SCH ×4 (07:56→21:20)
[2020-08-07] MEDS: FLUTICASONE PROPIONATE 50 MCG/SPRAY 16 GM NASAL SPRAY NASAL SCH ×2 (07:58→19:28)
[2020-08-07] MEDS: POTASSIUM CHLORIDE 20 MEQ ER TABLET PO PRN ×3 (08:05→23:37)
[2020-08-07 11:08] LABS: APPEARANCE,URINE CLOUDY (CLEAR); BILIRUBIN,URINE NEGATIVE (NEGATIVE); GLUCOSE, URINE (UA) NEGATIVE (NEGATIVE); KETONES,URINE 40 mg/dL (NEGATIVE); LEUKOCYTE ESTERASE ,URINE SMALL (NEGATIVE); NITRATE,URINE NEGATIVE (NEGATIVE); PH,URINE 6.5 (5.0-8.0); PROTEIN,URINE TRACE (NEGATIVE)
[2020-08-07 11:21] LABS: BACTERIA,URINE Many /HPF (None Seen); OCCULT BLOOD,URINE SMALL (NEGATIVE)
[2020-08-07] MEDS: ZOLPIDEM TARTRATE 5 MG TABLET PO PRN (23:36)
[2020-08-08] VITALS (8 sets, daily range): BP systolic 137–166; BP diastolic 83–106
[2020-08-08] MEDS: HYDROmorphone 2 MG/ML SYRINGE IVP PRN ×9 (01:47→21:56)
[2020-08-08 05:27] LABS: BASOPHILS % (AUTO) 0.3 % (0.0-2.0); EOSINOPHILS % (AUTO) 1.9 % (1.0-6.0); HEMATOCRIT 31.2 % (36-46); HEMOGLOBIN 10.7 g/dL (12.0-16.0); LYMPHOCYTES # (AUTO) 0.7 K/uL (1.0-4.8); LYMPHOCYTES % (AUTO) 11.7 % (22.0-44.0); MEAN CORPUSCULAR HEMOGLOBIN 34.7 pg (26.0-34.0); MEAN CORPUSCULAR HGB CONC 34.4 G/dL (31.0-37.0); MEAN CORPUSCULAR VOLUME 101 fL (80-100); MONOCYTES % (AUTO) 17.6 % (2.0-9.0); NEUTROPHILS # (AUTO) 3.9 K/uL (1.8-7.7); NEUTROPHILS % (AUTO) 68.5 % (40.0-70.0); PLATELET COUNT (AUTO) 117 K/uL (150-450); RED BLOOD CELL COUNT(AUTO) 3.09 MIL/uL (4.00-5.20); RED CELL DISTRIBUTION WIDTH 14.6 % (11.5-14.5)
[2020-08-08 06:33] LABS: ALANINE AMINOTRANSFERASE 37 U/L (12-78); ALBUMIN 1.9 g/dL (3.4-5.0); ALKALINE PHOSPHATASE 72 U/L (46-116); ANION GAP 8 mmol/L (8-16); ASPARTATE AMINOTRANSFERASE 33 U/L (15-37); CALCIUM, TOTAL 7.9 mg/dL (8.8-10.5); CARBON DIOXIDE 23 mmol/L (22-29); CHLORIDE 104 mmol/L (98-107); CREATININE 0.66 mg/dL (0.60-1.30); GLOMERULAR FILTR. RATE CALC > 60 mL/min (>60); GLUCOSE,RANDOM 88 mg/dL (70-110); LIPASE 310 U/L (73-393); POTASSIUM 3.7 mmol/L (3.5-5.1); SODIUM SERUM 135 mmol/L (136-145); TOTAL PROTEIN, SERUM 4.9 g/dL (6.4-8.2); UREA NITROGEN, BLOOD 4 mg/dL (7-18)
[2020-08-08] MEDS: PANTOPRAZOLE SODIUM 40 MG/VIAL IVP SCH (08:30)
[2020-08-08] MEDS: 1: MAGNESIUM SULFATE 2 GM, MVI, ADULT NO.1 WITH VIT K 10 ML, THIAMINE 100 MG, FOLIC ACID IV SCH ×10 (08:31→16:16)
[2020-08-08] MEDS: FLUTICASONE PROPIONATE 50 MCG/SPRAY 16 GM NASAL SPRAY NASAL SCH ×2 (08:34→22:45)
[2020-08-08] MEDS: ALBUTEROL SULFATE 2.5 MG/0.5 ML NEB SOLUTION NEB SCH ×4 (10:37→20:18)
[2020-08-08] MEDS: IPRATROPIUM BROMIDE 0.5 MG/2.5 ML NEB SOLUTION NEB SCH ×4 (10:37→20:18)
[2020-08-08] MEDS: HYDROCODONE/ACETAMINOPHEN 5-325 MG TABLET PO PRN (21:09)
[2020-08-08] MEDS: ZOLPIDEM TARTRATE 5 MG TABLET PO PRN (22:45)
[2020-08-09] MEDS: HYDROmorphone 2 MG/ML SYRINGE IVP PRN ×10 (00:21→21:53)
[2020-08-09] MEDS: 1: MAGNESIUM SULFATE 2 GM, MVI, ADULT NO.1 WITH VIT K 10 ML, THIAMINE 100 MG, FOLIC ACID IV SCH ×15 (00:21→20:11)
[2020-08-09] MEDS: HYDROCODONE/ACETAMINOPHEN 5-325 MG TABLET PO PRN ×2 (06:25→18:36)
[2020-08-09 07:19] LABS: BASOPHILS % (AUTO) 0.3 % (0.0-2.0); EOSINOPHILS % (AUTO) 1.2 % (1.0-6.0); HEMATOCRIT 31.5 % (36-46); HEMOGLOBIN 10.9 g/dL (12.0-16.0); LYMPHOCYTES # (AUTO) 0.7 K/uL (1.0-4.8); LYMPHOCYTES % (AUTO) 8.3 % (22.0-44.0); MEAN CORPUSCULAR HGB CONC 34.6 G/dL (31.0-37.0); MEAN CORPUSCULAR VOLUME 101 fL (80-100); MONOCYTES % (AUTO) 12.9 % (2.0-9.0); NEUTROPHILS # (AUTO) 6.2 K/uL (1.8-7.7); NEUTROPHILS % (AUTO) 77.3 % (40.0-70.0); PLATELET COUNT (AUTO) 161 K/uL (150-450); RED BLOOD CELL COUNT(AUTO) 3.12 MIL/uL (4.00-5.20); RED CELL DISTRIBUTION WIDTH 14.2 % (11.5-14.5)
[2020-08-09 07:33] LABS: ALANINE AMINOTRANSFERASE 36 U/L (12-78); ALBUMIN 1.9 g/dL (3.4-5.0); ALKALINE PHOSPHATASE 80 U/L (46-116); ANION GAP 9 mmol/L (8-16); ASPARTATE AMINOTRANSFERASE 29 U/L (15-37); BILIRUBIN,TOTAL 1.1 mg/dL (0.1-1.0); CALCIUM, TOTAL 7.7 mg/dL (8.8-10.5); CARBON DIOXIDE 25 mmol/L (22-29); CHLORIDE 103 mmol/L (98-107); CREATININE 0.47 mg/dL (0.60-1.30); GLOMERULAR FILTR. RATE CALC > 60 mL/min (>60); GLUCOSE,RANDOM 76 mg/dL (70-110); LIPASE 356 U/L (73-393); POTASSIUM 3.4 mmol/L (3.5-5.1); SODIUM SERUM 137 mmol/L (136-145); TOTAL PROTEIN, SERUM 5.2 g/dL (6.4-8.2); UREA NITROGEN, BLOOD 3 mg/dL (7-18)
[2020-08-09] MEDS: POTASSIUM CHLORIDE 20 MEQ ER TABLET PO PRN (07:51)
[2020-08-09] MEDS: PANTOPRAZOLE SODIUM 40 MG/VIAL IVP SCH (07:51)
[2020-08-09] MEDS: FLUTICASONE PROPIONATE 50 MCG/SPRAY 16 GM NASAL SPRAY NASAL SCH ×2 (07:51→19:32)
[2020-08-09 08:04] VITALS: BP 145/90
[2020-08-09] MEDS: IPRATROPIUM BROMIDE 0.5 MG/2.5 ML NEB SOLUTION NEB SCH ×4 (08:57→20:18)
[2020-08-09] MEDS: ALBUTEROL SULFATE 2.5 MG/0.5 ML NEB SOLUTION NEB SCH ×4 (08:57→20:18)
[2020-08-09] MEDS ORDERED: SODIUM CHLORIDE 0.9% 0 ML ONE (12:44)
[2020-08-09] MEDS: CefTRIAXone 1 GM/DEXTROSE 50 ML IV SCH (12:51)
[2020-08-09] MEDS ORDERED: SODIUM CHLORIDE 0.9% 100 ML ONE (14:25)
[2020-08-09] MEDS ORDERED: IOVERSOL 350 MG/ML 100 ML VIAL ONE (14:25)
[2020-08-09] MEDS ORDERED: BARIUM SULFATE 0.1% SUSPENSION 450 ML BOTTLE ONE (15:16)
[2020-08-09 16:00] VITALS: BP 152/77
[2020-08-09 19:34] VITALS: BP 145/84
[2020-08-09] MEDS: ZOLPIDEM TARTRATE 5 MG TABLET PO PRN (21:53)
[2020-08-09 23:40] VITALS: BP 152/90
[2020-08-09] MEDS: LABETALOL HCL 5 MG/ML 20 ML VIAL IVP PRN (23:54)
[2020-08-10] MEDS: HYDROmorphone 2 MG/ML SYRINGE IVP PRN ×10 (00:12→23:44)
[2020-08-10 04:28] LABS: BASOPHILS % (AUTO) 0.3 % (0.0-2.0); EOSINOPHILS % (AUTO) 1.2 % (1.0-6.0); HEMATOCRIT 29.1 % (36-46); HEMOGLOBIN 10.3 g/dL (12.0-16.0); LYMPHOCYTES # (AUTO) 0.7 K/uL (1.0-4.8); LYMPHOCYTES % (AUTO) 7.8 % (22.0-44.0); MEAN CORPUSCULAR HEMOGLOBIN 35.9 pg (26.0-34.0); MEAN CORPUSCULAR HGB CONC 35.5 G/dL (31.0-37.0); MEAN CORPUSCULAR VOLUME 101 fL (80-100); MONOCYTES # (AUTO) 0.9 K/uL (0.1-1.0); MONOCYTES % (AUTO) 10.4 % (2.0-9.0); NEUTROPHILS % (AUTO) 80.3 % (40.0-70.0); PLATELET COUNT (AUTO) 204 K/uL (150-450); RED BLOOD CELL COUNT(AUTO) 2.88 MIL/uL (4.00-5.20); RED CELL DISTRIBUTION WIDTH 14.2 % (11.5-14.5)
[2020-08-10 04:33] VITALS: BP 144/89
[2020-08-10 04:59] LABS: ALANINE AMINOTRANSFERASE 31 U/L (12-78); ALBUMIN 1.8 g/dL (3.4-5.0); ALKALINE PHOSPHATASE 78 U/L (46-116); ANION GAP 10 mmol/L (8-16); ASPARTATE AMINOTRANSFERASE 23 U/L (15-37); BILIRUBIN,TOTAL 0.9 mg/dL (0.1-1.0); CALCIUM, TOTAL 7.9 mg/dL (8.8-10.5); CARBON DIOXIDE 24 mmol/L (22-29); CHLORIDE 103 mmol/L (98-107); CREATININE 0.56 mg/dL (0.60-1.30); GLOMERULAR FILTR. RATE CALC > 60 mL/min (>60); GLUCOSE,RANDOM 70 mg/dL (70-110); LIPASE 263 U/L (73-393); PHOSPHORUS 3.3 mg/dL (2.5-4.9); POTASSIUM 3.8 mmol/L (3.5-5.1); SODIUM SERUM 137 mmol/L (136-145); TOTAL PROTEIN, SERUM 5.1 g/dL (6.4-8.2); UREA NITROGEN, BLOOD 4 mg/dL (7-18)
[2020-08-10] MEDS: 1: MAGNESIUM SULFATE 2 GM, MVI, ADULT NO.1 WITH VIT K 10 ML, THIAMINE 100 MG, FOLIC ACID IV SCH ×10 (06:21→14:24)
[2020-08-10] MEDS: FLUTICASONE PROPIONATE 50 MCG/SPRAY 16 GM NASAL SPRAY NASAL SCH ×2 (09:00→20:35)
[2020-08-10] MEDS: PANTOPRAZOLE SODIUM 40 MG/VIAL IVP SCH (09:28)
[2020-08-10] MEDS: IPRATROPIUM BROMIDE 0.5 MG/2.5 ML NEB SOLUTION NEB SCH ×4 (09:29→20:12)
[2020-08-10] MEDS: ALBUTEROL SULFATE 2.5 MG/0.5 ML NEB SOLUTION NEB SCH ×4 (09:29→20:12)
[2020-08-10 09:31] VITALS: BP 147/88
[2020-08-10] MEDS: HYDROCODONE/ACETAMINOPHEN 5-325 MG TABLET PO PRN ×3 (11:02→21:37)
[2020-08-10] MEDS: CefTRIAXone 1 GM/DEXTROSE 50 ML IV SCH (11:20)
[2020-08-10 11:25] VITALS: BP 149/79
[2020-08-10] MEDS ORDERED: SODIUM CHLORIDE 0.9% 1,000 ML ONE (14:07)
[2020-08-10 20:00] VITALS: BP 158/93
[2020-08-10 23:06] VITALS: BP 132/89
[2020-08-10] MEDS: ZOLPIDEM TARTRATE 5 MG TABLET PO PRN (23:47)
[2020-08-11] MEDS ORDERED: SODIUM CHLORIDE 0.9% 1,000 ML ONE (01:25)
[2020-08-11] MEDS: 1: MAGNESIUM SULFATE 2 GM, MVI, ADULT NO.1 WITH VIT K 10 ML, THIAMINE 100 MG, FOLIC ACID IV SCH ×15 (01:30→21:41)
[2020-08-11] MEDS: HYDROCODONE/ACETAMINOPHEN 5-325 MG TABLET PO PRN ×3 (01:30→22:36)
[2020-08-11] MEDS: HYDROmorphone 2 MG/ML SYRINGE IVP PRN ×7 (03:40→23:58)
[2020-08-11 04:16] VITALS: BP 136/84
[2020-08-11] MEDS: FLUTICASONE PROPIONATE 50 MCG/SPRAY 16 GM NASAL SPRAY NASAL SCH ×2 (08:01→20:42)
[2020-08-11] MEDS: PANTOPRAZOLE SODIUM 40 MG/VIAL IVP SCH (08:01)
[2020-08-11] MEDS: IPRATROPIUM BROMIDE 0.5 MG/2.5 ML NEB SOLUTION NEB SCH ×4 (08:02→20:23)
[2020-08-11] MEDS: ALBUTEROL SULFATE 2.5 MG/0.5 ML NEB SOLUTION NEB SCH ×4 (08:02→20:23)
[2020-08-11 08:29] VITALS: BP 162/96
[2020-08-11] MEDS: CefTRIAXone 1 GM/DEXTROSE 50 ML IV SCH (12:43)
[2020-08-11 15:34] VITALS: BP 149/80
[2020-08-11 20:00] VITALS: BP 146/95
[2020-08-12] VITALS (7 sets, daily range): BP systolic 130–167; BP diastolic 80–101
[2020-08-12] MEDS: ZOLPIDEM TARTRATE 5 MG TABLET PO PRN ×2 (01:24→23:35)
[2020-08-12] MEDS: HYDROmorphone 2 MG/ML SYRINGE IVP PRN ×7 (03:59→23:28)
[2020-08-12] MEDS: 1: MAGNESIUM SULFATE 2 GM, MVI, ADULT NO.1 WITH VIT K 10 ML, THIAMINE 100 MG, FOLIC ACID IV SCH ×5 (05:37)
[2020-08-12] MEDS: FLUTICASONE PROPIONATE 50 MCG/SPRAY 16 GM NASAL SPRAY NASAL SCH ×2 (07:52→20:42)
[2020-08-12] MEDS: PANTOPRAZOLE SODIUM 40 MG/VIAL IVP SCH (07:52)
[2020-08-12] MEDS: HYDROCODONE/ACETAMINOPHEN 5-325 MG TABLET PO PRN (09:47)
[2020-08-12] MEDS: LABETALOL HCL 5 MG/ML 20 ML VIAL IVP PRN (09:48)
[2020-08-12] MEDS: ALBUTEROL SULFATE 2.5 MG/0.5 ML NEB SOLUTION NEB SCH ×4 (10:06→20:14)
[2020-08-12] MEDS: IPRATROPIUM BROMIDE 0.5 MG/2.5 ML NEB SOLUTION NEB SCH ×4 (10:06→20:14)
[2020-08-12] MEDS ORDERED: DEXTROSE 5%-0.45% SODIUM CHL 1,000 ML IV SCH (10:30)
[2020-08-12] MEDS: CefTRIAXone 1 GM/DEXTROSE 50 ML IV SCH (11:21)
[2020-08-12 11:57] LABS: BASOPHILS % (AUTO) 0.3 % (0.0-2.0); EOSINOPHILS % (AUTO) 1.4 % (1.0-6.0); HEMATOCRIT 29.6 % (36-46); HEMOGLOBIN 10.4 g/dL (12.0-16.0); LYMPHOCYTES # (AUTO) 0.7 K/uL (1.0-4.8); LYMPHOCYTES % (AUTO) 8.7 % (22.0-44.0); MEAN CORPUSCULAR HEMOGLOBIN 35.2 pg (26.0-34.0); MEAN CORPUSCULAR VOLUME 101 fL (80-100); MONOCYTES # (AUTO) 0.7 K/uL (0.1-1.0); MONOCYTES % (AUTO) 8.6 % (2.0-9.0); NEUTROPHILS # (AUTO) 6.7 K/uL (1.8-7.7); PLATELET COUNT (AUTO) 346 K/uL (150-450); RED BLOOD CELL COUNT(AUTO) 2.94 MIL/uL (4.00-5.20); RED CELL DISTRIBUTION WIDTH 13.8 % (11.5-14.5)
[2020-08-12 12:07] LABS: ANION GAP 11 mmol/L (8-16); CALCIUM, TOTAL 7.5 mg/dL (8.8-10.5); CARBON DIOXIDE 23 mmol/L (22-29); CHLORIDE 103 mmol/L (98-107); CREATININE 0.56 mg/dL (0.60-1.30); GLOMERULAR FILTR. RATE CALC > 60 mL/min (>60); GLUCOSE,RANDOM 63 mg/dL (70-110); POTASSIUM 3.2 mmol/L (3.5-5.1); SODIUM SERUM 137 mmol/L (136-145); UREA NITROGEN, BLOOD 5 mg/dL (7-18)
[2020-08-12 12:13] LABS: ALANINE AMINOTRANSFERASE 26 U/L (12-78); ALBUMIN 1.8 g/dL (3.4-5.0); ALKALINE PHOSPHATASE 80 U/L (46-116); AMYLASE 96 U/L (25-115); ASPARTATE AMINOTRANSFERASE 24 U/L (15-37); BILIRUBIN,TOTAL 0.8 mg/dL (0.1-1.0); LIPASE 194 U/L (73-393); TOTAL PROTEIN, SERUM 5.2 g/dL (6.4-8.2)
[2020-08-12] MEDS: POTASSIUM CHLORIDE 20 MEQ ER TABLET PO PRN (12:34)
[2020-08-12] MEDS ORDERED: SODIUM CHLORIDE 0.9% 100 ML ONE (15:29)
[2020-08-12] MEDS ORDERED: IOVERSOL 320 MG/ML 100 ML VIAL ONE (15:29)
[2020-08-13 00:05] VITALS: BP 139/99
[2020-08-13] MEDS: 1: MAGNESIUM SULFATE 2 GM, MVI, ADULT NO.1 WITH VIT K 10 ML, THIAMINE 100 MG, FOLIC ACID IV SCH ×12 (01:36→14:01)
[2020-08-13] MEDS: HYDROmorphone 2 MG/ML SYRINGE IVP PRN ×7 (02:47→21:50)
[2020-08-13 05:15] VITALS: BP 149/85
[2020-08-13] MEDS: ALBUTEROL SULFATE 2.5 MG/0.5 ML NEB SOLUTION NEB SCH ×4 (08:52→20:28)
[2020-08-13] MEDS: IPRATROPIUM BROMIDE 0.5 MG/2.5 ML NEB SOLUTION NEB SCH ×4 (08:52→20:28)
[2020-08-13] MEDS: FLUTICASONE PROPIONATE 50 MCG/SPRAY 16 GM NASAL SPRAY NASAL SCH ×2 (09:11→21:00)
[2020-08-13] MEDS: PANTOPRAZOLE SODIUM 40 MG/VIAL IVP SCH (09:11)
[2020-08-13] MEDS: AmLODIPine BESYLATE 5 MG TABLET PO SCH (09:11)
[2020-08-13 09:15] VITALS: BP 147/89
[2020-08-13 12:24] VITALS: BP 143/94
[2020-08-13] MEDS: CefTRIAXone 1 GM/DEXTROSE 50 ML IV SCH (12:30)
[2020-08-13 16:03] VITALS: BP 136/82
[2020-08-13 20:00] VITALS: BP 123/85
[2020-08-14] VITALS (7 sets, daily range): BP systolic 117–148; BP diastolic 68–90
[2020-08-14] MEDS: 1: MAGNESIUM SULFATE 2 GM, MVI, ADULT NO.1 WITH VIT K 10 ML, THIAMINE 100 MG, FOLIC ACID IV SCH ×18 (00:11→20:07)
[2020-08-14] MEDS: HYDROmorphone 2 MG/ML SYRINGE IVP PRN ×8 (00:50→23:28)
[2020-08-14] MEDS: FLUTICASONE PROPIONATE 50 MCG/SPRAY 16 GM NASAL SPRAY NASAL SCH ×2 (08:09→20:08)
[2020-08-14] MEDS: PANTOPRAZOLE SODIUM 40 MG/VIAL IVP SCH (08:09)
[2020-08-14] MEDS: AmLODIPine BESYLATE 5 MG TABLET PO SCH (08:09)
[2020-08-14] MEDS: IPRATROPIUM BROMIDE 0.5 MG/2.5 ML NEB SOLUTION NEB SCH ×3 (08:43→16:00)
[2020-08-14] MEDS: ALBUTEROL SULFATE 2.5 MG/0.5 ML NEB SOLUTION NEB SCH ×3 (08:43→16:00)
[2020-08-14] MEDS: CefTRIAXone 1 GM/DEXTROSE 50 ML IV SCH (13:47)
[2020-08-14] MEDS: HYDROCODONE/ACETAMINOPHEN 5-325 MG TABLET PO PRN (15:32)
[2020-08-14] MEDS ORDERED: IPRATROPIUM BROMIDE 0.5 MG/2.5 ML NEB SOLUTION NEB PRN (16:45)
[2020-08-14] MEDS ORDERED: ALBUTEROL SULFATE 2.5 MG/0.5 ML NEB SOLUTION NEB PRN (16:45)
[2020-08-14] MEDS: ZOLPIDEM TARTRATE 5 MG TABLET PO PRN (23:39)
[2020-08-15] MEDS: HYDROmorphone 2 MG/ML SYRINGE IVP PRN ×7 (02:41→21:11)
[2020-08-15 04:15] VITALS: BP 142/72
[2020-08-15 08:00] VITALS: BP 124/77
[2020-08-15] MEDS: AmLODIPine BESYLATE 5 MG TABLET PO SCH (08:34)
[2020-08-15] MEDS: FLUTICASONE PROPIONATE 50 MCG/SPRAY 16 GM NASAL SPRAY NASAL SCH ×2 (08:34→21:11)
[2020-08-15] MEDS: PANTOPRAZOLE SODIUM 40 MG/VIAL IVP SCH (08:34)
[2020-08-15] MEDS: 1: MAGNESIUM SULFATE 2 GM, MVI, ADULT NO.1 WITH VIT K 10 ML, THIAMINE 100 MG, FOLIC ACID IV SCH ×12 (08:35→17:59)
[2020-08-15] MEDS: CefTRIAXone 1 GM/DEXTROSE 50 ML IV SCH (12:15)
[2020-08-15 15:33] VITALS: BP 135/82
[2020-08-15 20:30] VITALS: BP 135/78
[2020-08-16] VITALS: BP 128/85
[2020-08-16] MEDS: HYDROmorphone 2 MG/ML SYRINGE IVP PRN ×6 (00:03→21:10)
[2020-08-16] MEDS: ZOLPIDEM TARTRATE 5 MG TABLET PO PRN (00:05)
[2020-08-16 03:00] VITALS: BP 140/81
[2020-08-16] MEDS: 1: MAGNESIUM SULFATE 2 GM, MVI, ADULT NO.1 WITH VIT K 10 ML, THIAMINE 100 MG, FOLIC ACID IV SCH ×12 (04:31→14:45)
[2020-08-16 07:57] VITALS: BP 133/74
[2020-08-16] MEDS: PANTOPRAZOLE SODIUM 40 MG/VIAL IVP SCH (09:07)
[2020-08-16] MEDS: FLUTICASONE PROPIONATE 50 MCG/SPRAY 16 GM NASAL SPRAY NASAL SCH ×2 (09:07→20:14)
[2020-08-16] MEDS: AmLODIPine BESYLATE 5 MG TABLET PO SCH (09:08)
[2020-08-16] MEDS: CefTRIAXone 1 GM/DEXTROSE 50 ML IV SCH (12:13)
[2020-08-16] MEDS: HYDROCODONE/ACETAMINOPHEN 5-325 MG TABLET PO PRN ×3 (12:20→23:51)
[2020-08-16 15:35] VITALS: BP 114/71
[2020-08-16 20:20] VITALS: BP 146/79
[2020-08-16 23:46] VITALS: BP 133/75
[2020-08-17] MEDS: 1: MAGNESIUM SULFATE 2 GM, MVI, ADULT NO.1 WITH VIT K 10 ML, THIAMINE 100 MG, FOLIC ACID IV SCH ×6 (00:33)
[2020-08-17] MEDS: HYDROmorphone 2 MG/ML SYRINGE IVP PRN ×4 (03:02→21:46)
[2020-08-17 04:11] VITALS: BP 127/80
[2020-08-17] MEDS: HYDROCODONE/ACETAMINOPHEN 5-325 MG TABLET PO PRN ×3 (05:33→17:07)
[2020-08-17 06:59] LABS: ANION GAP 8 mmol/L (8-16); CALCIUM, TOTAL 8.2 mg/dL (8.8-10.5); CARBON DIOXIDE 27 mmol/L (22-29); CHLORIDE 107 mmol/L (98-107); CREATININE 0.64 mg/dL (0.60-1.30); GLOMERULAR FILTR. RATE CALC > 60 mL/min (>60); GLUCOSE,RANDOM 111 mg/dL (70-110); POTASSIUM 3.2 mmol/L (3.5-5.1); SODIUM SERUM 142 mmol/L (136-145); UREA NITROGEN, BLOOD 2 mg/dL (7-18)
[2020-08-17 08:07] VITALS: BP 140/73
[2020-08-17] MEDS: AmLODIPine BESYLATE 5 MG TABLET PO SCH (08:17)
[2020-08-17] MEDS: FLUTICASONE PROPIONATE 50 MCG/SPRAY 16 GM NASAL SPRAY NASAL SCH (08:18)
[2020-08-17] MEDS: PANTOPRAZOLE SODIUM 40 MG/VIAL IVP SCH (08:18)
[2020-08-17] MEDS: POTASSIUM CHLORIDE 20 MEQ ER TABLET PO PRN ×2 (08:25→12:53)
[2020-08-17] MEDS: OxyCODONE HCL/ACETAMINOPHEN 10-325 MG TABLET PO PRN (10:35)
[2020-08-17] MEDS ORDERED: SODIUM CHLORIDE 0.9% 0 ML IV ONE (11:06)
[2020-08-17 16:02] VITALS: BP 136/76
[2020-08-17 19:30] VITALS: BP 132/79
[2020-08-17] MEDS: ZOLPIDEM TARTRATE 5 MG TABLET PO PRN (21:49)
[2020-08-17 23:19] VITALS: BP 122/77
[2020-08-18] MEDS: HYDROCODONE/ACETAMINOPHEN 5-325 MG TABLET PO PRN (01:08)
[2020-08-18 04:05] VITALS: BP 129/71
[2020-08-18] MEDS: OxyCODONE HCL/ACETAMINOPHEN 10-325 MG TABLET PO PRN ×3 (04:06→20:25)
[2020-08-18] MEDS: HYDROmorphone 2 MG/ML SYRINGE IVP PRN (07:02)
[2020-08-18 08:13] VITALS: BP 138/85
[2020-08-18] MEDS: PANTOPRAZOLE SODIUM 40 MG/VIAL IVP SCH (08:21)
[2020-08-18] MEDS: AmLODIPine BESYLATE 5 MG TABLET PO SCH (08:21)
[2020-08-18] MEDS: HYDROCODONE/ACETAMINOPHEN 10-325 MG TABLET PO PRN ×3 (09:29→23:50)
[2020-08-18 16:52] VITALS: BP 142/75
[2020-08-18 19:52] VITALS: BP 123/82
[2020-08-18 23:43] VITALS: BP 129/80
[2020-08-18] MEDS: ZOLPIDEM TARTRATE 5 MG TABLET PO PRN (23:54)
[2020-08-19 04:35] VITALS: BP 133/84
[2020-08-19] MEDS: OxyCODONE HCL/ACETAMINOPHEN 10-325 MG TABLET PO PRN ×2 (05:21→13:43)
[2020-08-19 06:46] LABS: BASOPHILS % (AUTO) 1.1 % (0.0-2.0); EOSINOPHILS % (AUTO) 2.8 % (1.0-6.0); HEMATOCRIT 33.4 % (36-46); HEMOGLOBIN 11.8 g/dL (12.0-16.0); LYMPHOCYTES # (AUTO) 1.5 K/uL (1.0-4.8); LYMPHOCYTES % (AUTO) 25.8 % (22.0-44.0); MEAN CORPUSCULAR HEMOGLOBIN 34.9 pg (26.0-34.0); MEAN CORPUSCULAR HGB CONC 35.2 G/dL (31.0-37.0); MEAN CORPUSCULAR VOLUME 99 fL (80-100); MONOCYTES # (AUTO) 0.4 K/uL (0.1-1.0); MONOCYTES % (AUTO) 6.2 % (2.0-9.0); NEUTROPHILS # (AUTO) 3.8 K/uL (1.8-7.7); NEUTROPHILS % (AUTO) 64.1 % (40.0-70.0); PLATELET COUNT (AUTO) 517 K/uL (150-450); RED BLOOD CELL COUNT(AUTO) 3.37 MIL/uL (4.00-5.20); RED CELL DISTRIBUTION WIDTH 14.2 % (11.5-14.5)
[2020-08-19 07:09] LABS: ALANINE AMINOTRANSFERASE 31 U/L (12-78); ALBUMIN 2.4 g/dL (3.4-5.0); ALKALINE PHOSPHATASE 126 U/L (46-116); ANION GAP 9 mmol/L (8-16); ASPARTATE AMINOTRANSFERASE 34 U/L (15-37); BILIRUBIN,TOTAL 0.6 mg/dL (0.1-1.0); CALCIUM, TOTAL 8.7 mg/dL (8.8-10.5); CARBON DIOXIDE 26 mmol/L (22-29); CHLORIDE 103 mmol/L (98-107); GLOMERULAR FILTR. RATE CALC > 60 mL/min (>60); GLUCOSE,RANDOM 76 mg/dL (70-110); PHOSPHORUS 4.4 mg/dL (2.5-4.9); POTASSIUM 3.7 mmol/L (3.5-5.1); SODIUM SERUM 138 mmol/L (136-145); TOTAL PROTEIN, SERUM 5.6 g/dL (6.4-8.2); UREA NITROGEN, BLOOD 7 mg/dL (7-18)
[2020-08-19 08:06] VITALS: BP 138/73
[2020-08-19] MEDS: PANTOPRAZOLE SODIUM 40 MG/VIAL IVP SCH (09:18)
[2020-08-19] MEDS: HYDROCODONE/ACETAMINOPHEN 10-325 MG TABLET PO PRN (09:18)
[2020-08-19] MEDS: AmLODIPine BESYLATE 5 MG TABLET PO SCH (09:19)
[2020-08-19] MEDS ORDERED: OXYC-601 PO (13:27)
[2020-08-19] MEDS ORDERED: DOCU-275 PO (13:28)
== END 2020-08-19 15:15 | disposition home or self-care (01) | DRG 282 ==
LOC: EMS 13:10 → OBSVTOIN 16:45 → 5S 16:45 → UNDOADMOB 17:49 → 6N 17:49 → INTOOBSV 17:49 → 6N 08-08 17:15 → 6S 08-09 10:01 → 6N 08-18 05:22
PROVIDERS: ADMIT Internal Medicine; ATTEND Internal Medicine
DX: K85.20 Alcohol induced acute pancreatitis without necrosis or infection (principal); E87.6 Hypokalemia; D69.6 Thrombocytopenia, unspecified; E66.9 Obesity, unspecified; Z68.31 Body mass index [BMI] 31.0-31.9, adult; F10.239 Alcohol dependence with withdrawal, unspecified; E44.0 Moderate protein-calorie malnutrition; Z90.49 Acquired absence of other specified parts of digestive tract; I10 Essential (primary) hypertension; K86.3 Pseudocyst of pancreas; E83.42 Hypomagnesemia; F41.9 Anxiety disorder, unspecified; F32.9 Major depressive disorder, single episode, unspecified; M54.9 Dorsalgia, unspecified; Y90.9 Presence of alcohol in blood, level not specified; Z79.899 Other long term (current) drug therapy; Z23 Encounter for immunization
CPT/HCPCS: 74176; 74177; 74183; 76705; 83735; 84100; 84132; 84145; 84439; 84443; 87086; 90686; 93005; 94640; A9585; C9113; G0480; J0696; J1170; J1644; J1885; J2060; J2270; J2405; J3411; J3475; J3480; J3490; J7030; J7050; 36415-L1; 36415-TC; 71045-TC; 80061-TC; J7613

== ENCOUNTER 2020-09-19 11:18 | Emergency (ER) | payer OTHER ==
[~2020-09-19] VITALS: Ht 167.6 cm; Wt 90.9 kg
[~2020-09-19 11:18] MED LIST changes: +DOCU-275 PO; +OXYC-601 PO
[2020-09-19 12:17] LABS: BASOPHILS % (AUTO) 1.1 % (0.0-2.0); EOSINOPHILS % (AUTO) 4.5 % (1.0-6.0); HEMATOCRIT 37.3 % (36-46); LYMPHOCYTES # (AUTO) 1.3 K/uL (1.0-4.8); LYMPHOCYTES % (AUTO) 23.3 % (22.0-44.0); MEAN CORPUSCULAR HEMOGLOBIN 34.2 pg (26.0-34.0); MEAN CORPUSCULAR HGB CONC 34.9 G/dL (31.0-37.0); MEAN CORPUSCULAR VOLUME 98 fL (80-100); MONOCYTES # (AUTO) 0.3 K/uL (0.1-1.0); MONOCYTES % (AUTO) 4.6 % (2.0-9.0); NEUTROPHILS # (AUTO) 3.7 K/uL (1.8-7.7); NEUTROPHILS % (AUTO) 66.5 % (40.0-70.0); PLATELET COUNT (AUTO) 191 K/uL (150-450); RED BLOOD CELL COUNT(AUTO) 3.81 MIL/uL (4.00-5.20); RED CELL DISTRIBUTION WIDTH 13.1 % (11.5-14.5)
[2020-09-19 12:29] LABS: ANION GAP 13 mmol/L (8-16); CALCIUM, TOTAL 9.5 mg/dL (8.8-10.5); CARBON DIOXIDE 24 mmol/L (22-29); CHLORIDE 103 mmol/L (98-107); GLOMERULAR FILTR. RATE CALC > 60 mL/min (>60); GLUCOSE,RANDOM 81 mg/dL (70-110); POTASSIUM 3.8 mmol/L (3.5-5.1); SODIUM SERUM 140 mmol/L (136-145); UREA NITROGEN, BLOOD 19 mg/dL (7-18)
[2020-09-19] MEDS ORDERED: ONDANSETRON HCL 4 MG/2 ML VIAL IVP ONE (12:30)
[2020-09-19] MEDS ORDERED: MORPHINE SULFATE 4 MG/ML SYRINGE IVP ONE ×2 (12:30→14:15)
[2020-09-19] MEDS ORDERED: SODIUM CHLORIDE 0.9% 1,000 ML IV ONE (12:30)
[2020-09-19 12:51] LABS: ALANINE AMINOTRANSFERASE 43 U/L (12-78); ALKALINE PHOSPHATASE 99 U/L (46-116); ASPARTATE AMINOTRANSFERASE 35 U/L (15-37); BILIRUBIN,TOTAL 1.9 mg/dL (0.1-1.0); HCG,QUANTITATIVE 4 mIU/mL (0-6); LIPASE 247 U/L (73-393); TOTAL PROTEIN, SERUM 7.4 g/dL (6.4-8.2)
[2020-09-19] MEDS ORDERED: IOVERSOL 350 MG/ML 100 ML VIAL ONE (13:31)
[2020-09-19] MEDS ORDERED: SODIUM CHLORIDE 0.9% 100 ML ONE (13:31)
[2020-09-19 15:30] VITALS: BP 127/87
[2020-09-19 16:03] LABS: APPEARANCE,URINE TURBID (CLEAR); GLUCOSE, URINE (UA) NEGATIVE (NEGATIVE); KETONES,URINE 40 mg/dL (NEGATIVE); LEUKOCYTE ESTERASE ,URINE LARGE (NEGATIVE); NITRATE,URINE NEGATIVE (NEGATIVE); OCCULT BLOOD,URINE SMALL (NEGATIVE); PH,URINE 5.5 (5.0-8.0); PROTEIN,URINE POS 1+ (NEGATIVE)
[2020-09-19 16:13] LABS: BILIRUBIN,URINE PRELIM. POSITIVE (NEGATIVE)
[2020-09-19 16:22] LABS: BACTERIA,URINE Many /HPF (None Seen); RBC,URINE 0-2 /HPF (0-2); SQUAMOUS EPITHELIAL CELL,UR Moderate /LPF (None Seen); WBC,URINE 51-100 /HPF (0-5); YEAST,URINE Few /HPF (None Seen)
== END 2020-09-19 15:42 | disposition home or self-care (01) ==
LOC: EMS 11:18
DX: K86.3 Pseudocyst of pancreas (principal); R11.10 Vomiting, unspecified; F11.90 Opioid use, unspecified, uncomplicated; F32.9 Major depressive disorder, single episode, unspecified; J45.909 Unspecified asthma, uncomplicated; Z90.49 Acquired absence of other specified parts of digestive tract
CPT/HCPCS: 36415; 74177; 80053; 81001; 83690; 84702; 85025; 87086; 96361; 96374; 96375; 96376; 99285; J2270; J2405; J7030; J7050; Q9967

== ENCOUNTER 2020-10-10 11:44 | Emergency (ER) | payer OTHER ==
[~2020-10-10] VITALS: Ht 167.6 cm; Wt 90.9 kg
[~2020-10-10 11:44] MED LIST changes: -DOCU-275 PO
[2020-10-10 12:45] LABS: BASOPHILS % (AUTO) 1.1 % (0.0-2.0); EOSINOPHILS % (AUTO) 3.2 % (1.0-6.0); HEMATOCRIT 41.4 % (36-46); HEMOGLOBIN 13.9 g/dL (12.0-16.0); LYMPHOCYTES # (AUTO) 1.3 K/uL (1.0-4.8); LYMPHOCYTES % (AUTO) 28.6 % (22.0-44.0); MEAN CORPUSCULAR HEMOGLOBIN 33.4 pg (26.0-34.0); MEAN CORPUSCULAR HGB CONC 33.5 G/dL (31.0-37.0); MEAN CORPUSCULAR VOLUME 100 fL (80-100); MONOCYTES # (AUTO) 0.2 K/uL (0.1-1.0); MONOCYTES % (AUTO) 4.2 % (2.0-9.0); NEUTROPHILS # (AUTO) 2.8 K/uL (1.8-7.7); NEUTROPHILS % (AUTO) 62.9 % (40.0-70.0); PLATELET COUNT (AUTO) 182 K/uL (150-450); RED BLOOD CELL COUNT(AUTO) 4.15 MIL/uL (4.00-5.20); RED CELL DISTRIBUTION WIDTH 14.9 % (11.5-14.5)
[2020-10-10 12:57] LABS: ANION GAP 8 mmol/L (8-16); CALCIUM, TOTAL 8.3 mg/dL (8.8-10.5); CARBON DIOXIDE 29 mmol/L (22-29); CHLORIDE 110 mmol/L (98-107); CREATININE 0.82 mg/dL (0.60-1.30); GLOMERULAR FILTR. RATE CALC > 60 mL/min (>60); GLUCOSE,RANDOM 108 mg/dL (70-110); POTASSIUM 3.8 mmol/L (3.5-5.1); SODIUM SERUM 147 mmol/L (136-145); UREA NITROGEN, BLOOD 20 mg/dL (7-18)
[2020-10-10 13:13] LABS: ALANINE AMINOTRANSFERASE 69 U/L (12-78); ALBUMIN 3.9 g/dL (3.4-5.0); ALKALINE PHOSPHATASE 111 U/L (46-116); ASPARTATE AMINOTRANSFERASE 73 U/L (15-37); BILIRUBIN,TOTAL 0.5 mg/dL (0.1-1.0); HCG,QUANTITATIVE 3 mIU/mL (0-6); LIPASE 118 U/L (73-393); TOTAL PROTEIN, SERUM 7.3 g/dL (6.4-8.2)
[2020-10-10] MEDS ORDERED: KETOROLAC TROMETHAMINE 30 MG/ML VIAL IVP ONE (13:30)
[2020-10-10] MEDS ORDERED: SODIUM CHLORIDE 0.9% 1,000 ML IV ONE ×2 (13:30→16:15)
[2020-10-10] MEDS ORDERED: ONDANSETRON HCL 4 MG/2 ML VIAL IVP ONE (13:30)
[2020-10-10] MEDS ORDERED: HYDROmorphone 2 MG/ML SYRINGE IVP ONE ×3 (13:45→17:45)
[2020-10-10 14:11] LABS: APPEARANCE,URINE CLEAR (CLEAR); BILIRUBIN,URINE NEGATIVE (NEGATIVE); GLUCOSE, URINE (UA) NEGATIVE (NEGATIVE); KETONES,URINE NEGATIVE (NEGATIVE); LEUKOCYTE ESTERASE ,URINE MODERATE (NEGATIVE); NITRATE,URINE NEGATIVE (NEGATIVE); OCCULT BLOOD,URINE NEGATIVE (NEGATIVE); PH,URINE 6.5 (5.0-8.0); PROTEIN,URINE NEGATIVE (NEGATIVE)
[2020-10-10 14:12] LABS: AMPHET/METH SCREEN,URINE NEGATIVE (NEGATIVE); BARBITURATE SCREEN, URINE NEGATIVE (NEGATIVE); BENZODIAZEPINES SCREEN,URINE NEGATIVE (NEGATIVE); CANNABINOID SCREEN,URINE NEGATIVE (NEGATIVE); COCAINE SCREEN,URINE NEGATIVE (NEGATIVE); METHADONE SCREEN, URINE NEGATIVE (NEGATIVE); OPIATE SCREEN,URINE POSITIVE (NEGATIVE); PHENCYCLIDINE SCREEN,URINE NEGATIVE (NEGATIVE)
[2020-10-10 14:32] LABS: BACTERIA,URINE Many /HPF (None Seen); RBC,URINE None Seen /HPF (0-2); SQUAMOUS EPITHELIAL CELL,UR Moderate /LPF (None Seen)
[2020-10-10] MEDS ORDERED: SODIUM CHLORIDE 0.9% 100 ML ONE (15:22)
[2020-10-10] MEDS ORDERED: IOVERSOL 350 MG/ML 100 ML VIAL ONE (15:23)
[2020-10-10] MEDS ORDERED: MORPHINE SULFATE 2 MG/ML SYRINGE IVP PRN (15:45)
[2020-10-10] MEDS ORDERED: SODIUM CHLORIDE 0.45% 1,000 ML IV SCH (15:45)
[2020-10-10] MEDS ORDERED: LORazepam 2 MG/ML VIAL IVP PRN (15:45)
[2020-10-10] MEDS ORDERED: ACETAMINOPHEN 325 MG TABLET PO PRN (15:45)
[2020-10-10] MEDS ORDERED: MAGNESIUM HYDROXIDE SUSPENSION 30 ML UDCUP PO PRN (15:45)
[2020-10-10] MEDS ORDERED: HEPARIN SODIUM,PORCINE 5,000 UNITS/ML VIAL SQ SCH (16:00)
[2020-10-10 17:58] LABS: COVID AG,FIA SOURCE NASOPHARYNGEAL
[2020-10-10 18:01] VITALS: BP 126/82
[2020-10-10] MEDS ORDERED: DOCUSATE SODIUM 100 MG CAPSULE PO SCH (21:00)
[2020-10-10] MEDS ORDERED: FAMOTIDINE 20 MG TABLET PO SCH (21:00)
[2020-10-11] MEDS ORDERED: MULTIVITAMINS WITH MINERALS, THERAPEUTIC TABLET PO SCH (09:00)
== END 2020-10-10 18:04 | disposition left against medical advice (07) ==
LOC: EMS 11:44 → 4E 15:36 → UNDOADMIN 15:36 → EMS 18:04
DX: K86.3 Pseudocyst of pancreas (principal); K85.90 Acute pancreatitis without necrosis or infection, unspecified; K86.1 Other chronic pancreatitis; F10.20 Alcohol dependence, uncomplicated; J45.909 Unspecified asthma, uncomplicated; F32.9 Major depressive disorder, single episode, unspecified; F11.90 Opioid use, unspecified, uncomplicated; Z20.828 Contact with and (suspected) exposure to other viral communicable diseases; Y90.6 Blood alcohol level of 120-199 mg/100 ml
CPT/HCPCS: 36415; 74177; 76700; 80053; 80307; 81001; 83690; 83735; 84702; 85025; 87077; 87086; 87186; 87426; 96361; 96372; 96374; 96375; 96376; 99285; G0480; J1170; J1644; J1885; J2405; J7030 ×2; J7050; Q9967

== ENCOUNTER 2020-11-11 15:17 | Emergency (ER) | payer OTHER ==
[~2020-11-11] VITALS: Ht 170.2 cm; Wt 81.8 kg
[2020-11-11] MEDS ORDERED: ONDANSETRON HCL 4 MG/2 ML VIAL IVP ONE (16:00)
[2020-11-11] MEDS ORDERED: SODIUM CHLORIDE 0.9% 1,000 ML IV ONE (16:00)
[2020-11-11 16:26] LABS: BASOPHILS % (AUTO) 0.8 % (0.0-2.0); EOSINOPHILS % (AUTO) 0.3 % (1.0-6.0); HEMATOCRIT 44.6 % (36-46); HEMOGLOBIN 14.6 g/dL (12.0-16.0); LYMPHOCYTES # (AUTO) 1.2 K/uL (1.0-4.8); LYMPHOCYTES % (AUTO) 19.1 % (22.0-44.0); MEAN CORPUSCULAR HEMOGLOBIN 32.6 pg (26.0-34.0); MEAN CORPUSCULAR HGB CONC 32.8 G/dL (31.0-37.0); MEAN CORPUSCULAR VOLUME 99 fL (80-100); MONOCYTES # (AUTO) 0.2 K/uL (0.1-1.0); MONOCYTES % (AUTO) 3.2 % (2.0-9.0); NEUTROPHILS # (AUTO) 4.9 K/uL (1.8-7.7); NEUTROPHILS % (AUTO) 76.6 % (40.0-70.0); PLATELET COUNT (AUTO) 175 K/uL (150-450)
[2020-11-11 16:41] LABS: ANION GAP 14 mmol/L (8-16); CALCIUM, TOTAL 8.6 mg/dL (8.8-10.5); CARBON DIOXIDE 24 mmol/L (22-29); CHLORIDE 105 mmol/L (98-107); CREATININE 0.75 mg/dL (0.60-1.30); GLOMERULAR FILTR. RATE CALC > 60 mL/min (>60); GLUCOSE,RANDOM 86 mg/dL (70-110); POTASSIUM 3.5 mmol/L (3.5-5.1); SODIUM SERUM 143 mmol/L (136-145); UREA NITROGEN, BLOOD 10 mg/dL (7-18)
[2020-11-11 16:50] LABS: ALANINE AMINOTRANSFERASE 36 U/L (12-78); ALBUMIN 4.1 g/dL (3.4-5.0); ALKALINE PHOSPHATASE 114 U/L (46-116); ASPARTATE AMINOTRANSFERASE 27 U/L (15-37); BILIRUBIN,TOTAL 0.7 mg/dL (0.1-1.0); HCG,QUANTITATIVE 2 mIU/mL (0-6); LIPASE 51 U/L (73-393); TOTAL PROTEIN, SERUM 7.6 g/dL (6.4-8.2)
[2020-11-11 17:09] LABS: APPEARANCE,URINE CLEAR (CLEAR); BILIRUBIN,URINE NEGATIVE (NEGATIVE); GLUCOSE, URINE (UA) NEGATIVE (NEGATIVE); KETONES,URINE NEGATIVE (NEGATIVE); LEUKOCYTE ESTERASE ,URINE TRACE (NEGATIVE); NITRATE,URINE NEGATIVE (NEGATIVE); OCCULT BLOOD,URINE TRACE (NEGATIVE); PROTEIN,URINE NEGATIVE (NEGATIVE); UROBILINOGEN,URINE 0.2 mg/dL (<=1.0)
[2020-11-11 17:25] LABS: BACTERIA,URINE None Seen /HPF (None Seen); RBC,URINE None Seen /HPF (0-2); SQUAMOUS EPITHELIAL CELL,UR Few /LPF (None Seen); WBC,URINE 0-2 /HPF (0-5)
[2020-11-11] MEDS ORDERED: FAMOTIDINE 10 MG/ML 2 ML VIAL IVP ONE (17:45)
[2020-11-11] MEDS ORDERED: PB/HYOSCY/ATR/SCOP/LIDO/MAALOX 55 ML BOTTLE PO ONE (17:45)
[2020-11-11 18:00] VITALS: BP 148/72
== END 2020-11-11 18:20 | disposition home or self-care (01) ==
LOC: EMS 15:17
DX: G89.29 Other chronic pain (principal); R10.13 Epigastric pain; R11.2 Nausea with vomiting, unspecified; F10.10 Alcohol abuse, uncomplicated; J45.909 Unspecified asthma, uncomplicated; F32.9 Major depressive disorder, single episode, unspecified; Z79.899 Other long term (current) drug therapy
CPT/HCPCS: 36415; 80053; 81001; 83690; 84702; 85025; 96361; 96374; 96375; 99284; J2405; J3490; J7030

== ENCOUNTER 2021-04-04 21:24 | Emergency (ER) | payer OTHER ==
[~2021-04-04] VITALS: Ht 167.6 cm; Wt 72.7 kg
[2021-04-04 22:02] VITALS: BP 141/89
== END 2021-04-04 22:02 | disposition home or self-care (01) ==
LOC: EMS 21:24
DX: B86 Scabies (principal); F11.90 Opioid use, unspecified, uncomplicated; J45.909 Unspecified asthma, uncomplicated; F32.9 Major depressive disorder, single episode, unspecified; Z90.49 Acquired absence of other specified parts of digestive tract
CPT/HCPCS: 99282; Z7502

== ENCOUNTER 2021-11-13 10:45 | Emergency (ER) | payer OTHER ==
[~2021-11-13] VITALS: Ht 167.6 cm; Wt 86.4 kg
[~2021-11-13 10:45] MED LIST changes: +OXYC-490 PO; -OXYC-601 PO
[2021-11-13 11:20] VITALS: BP 164/103
== END 2021-11-13 13:01 | disposition left against medical advice (07) ==
LOC: EMS 10:45
DX: M25.561 Pain in right knee (principal); Z53.21 Procedure and treatment not carried out due to patient leaving prior to being seen by health care provider

== ENCOUNTER 2021-11-15 00:44 | Emergency (ER) | payer OTHER ==
[~2021-11-15] VITALS: Ht 167.6 cm; Wt 77.3 kg
[2021-11-15 01:15] VITALS: BP 125/64
[2021-11-15] MEDS ORDERED: ACETAMINOPHEN/CODEINE 300-30 MG TABLET PO ONE (02:45)
[2021-11-15] MEDS ORDERED: IBUPROFEN 600 MG TABLET PO ONE (02:45)
[2021-11-15 03:22] LABS: COVID AG,FIA SOURCE NASOPHARYNGEAL
== END 2021-11-15 04:33 | disposition home or self-care (01) ==
LOC: EMS 00:46
DX: S80.01XA Contusion of right knee, initial encounter (principal); U07.1 COVID-19; J06.9 Acute upper respiratory infection, unspecified; G89.29 Other chronic pain; J45.909 Unspecified asthma, uncomplicated; F32.9 Major depressive disorder, single episode, unspecified; F17.200 Nicotine dependence, unspecified, uncomplicated; F11.90 Opioid use, unspecified, uncomplicated; Z90.89 Acquired absence of other organs; W01.0XXA Fall on same level from slipping, tripping and stumbling without subsequent striking against object, initial encounter; Y93.89 Activity, other specified; Y92.89 Other specified places as the place of occurrence of the external cause; Y99.8 Other external cause status
CPT/HCPCS: 73562; 87426; 99284; U0003; 29530; Z7502; Z7610

== ENCOUNTER 2022-08-24 09:21 | Inpatient (IN) | payer OTHER ==
[~2022-08-24] VITALS: Ht 167.6 cm; Wt 95.0 kg
[2022-08-24 10:52] LABS: BASOPHILS % (AUTO) 0.6 % (0.0-2.0); EOSINOPHILS % (AUTO) 0.5 % (1.0-6.0); HEMOGLOBIN 16.3 g/dL (12.0-16.0); LYMPHOCYTES # (AUTO) 0.9 K/uL (1.0-4.8); LYMPHOCYTES % (AUTO) 13.3 % (22.0-44.0); MEAN CORPUSCULAR HEMOGLOBIN 33.8 pg (26.0-34.0); MEAN CORPUSCULAR HGB CONC 34.6 G/dL (31.0-37.0); MEAN CORPUSCULAR VOLUME 98 fL (80-100); MONOCYTES # (AUTO) 0.3 K/uL (0.1-1.0); MONOCYTES % (AUTO) 4.5 % (2.0-9.0); NEUTROPHILS # (AUTO) 5.4 K/uL (1.8-7.7); NEUTROPHILS % (AUTO) 81.1 % (40.0-70.0); PLATELET COUNT (AUTO) 112 K/uL (150-450); RED BLOOD CELL COUNT(AUTO) 4.82 MIL/uL (4.00-5.20); RED CELL DISTRIBUTION WIDTH 13.4 % (11.5-14.5)
[2022-08-24] MEDS ORDERED: ONDANSETRON HCL 4 MG/2 ML VIAL IVP ONE (11:15)
[2022-08-24 11:18] LABS: BILIRUBIN,TOTAL 4.9 mg/dL (0.1-1.0); CALCIUM, TOTAL 8.7 mg/dL (8.8-10.5); CREATININE 1.27 mg/dL (0.60-1.30); TOTAL PROTEIN, SERUM 7.4 g/dL (6.4-8.2)
[2022-08-24 11:29] LABS: POTASSIUM 2.9 mmol/L (3.5-5.1)
[2022-08-24] MEDS ORDERED: POTASSIUM CHLORIDE 20 MEQ ER TABLET PO ONE (12:15)
[2022-08-24] MEDS ORDERED: MAGNESIUM SULFATE 2 GM, MVI, ADULT NO.1 WITH VIT K 10 ML, THIAMINE 100 MG, FOLIC ACID 1... IV ONE ×10 (12:15→15:30)
[2022-08-24] MEDS: POTASSIUM CHL 10 MEQ/WATER 50 ML IV SCH ×2 (12:32→15:38)
[2022-08-24] MEDS ORDERED: MORPHINE SULFATE 4 MG/ML SYRINGE IVP ONE (12:45)
[2022-08-24] MEDS ORDERED: LORazepam 2 MG/ML VIAL IVP ONE (12:45)
[2022-08-24 12:59] LABS: COVID AG,FIA SOURCE NASAL SWAB
[2022-08-24 13:56] LABS: INFLUENZA TYPE A NEGATIVE FOR TYPE A (NEGATIVE); INFLUENZA TYPE B NEGATIVE FOR TYPE B (NEGATIVE)
[2022-08-24] MEDS ORDERED: MAGNESIUM HYDROXIDE SUSPENSION 30 ML UDCUP PO PRN (15:30)
[2022-08-24] MEDS ORDERED: MAGNESIUM SULFATE 2 GM/WATER 50 ML IV PRN (15:30)
[2022-08-24] MEDS ORDERED: ONDANSETRON HCL 4 MG/2 ML VIAL IVP PRN (15:30)
[2022-08-24] MEDS ORDERED: LORazepam 2 MG/ML VIAL IVP PRN (15:30)
[2022-08-24] MEDS ORDERED: MAGNESIUM SULFATE 4 GM/WATER 100 ML IV PRN (15:30)
[2022-08-24] MEDS ORDERED: BISACODYL 10 MG RECTAL RECTAL SUPPOSITORY PR PRN (15:30)
[2022-08-24] MEDS ORDERED: MAGNESIUM OXIDE 400 MG TABLET PO PRN (15:30)
[2022-08-24] MEDS ORDERED: ZOLPIDEM TARTRATE 5 MG TABLET PO PRN (15:30)
[2022-08-24] MEDS ORDERED: ACETAMINOPHEN 325 MG TABLET PO PRN (15:30)
[2022-08-24] MEDS: HEPARIN SODIUM,PORCINE 5,000 UNITS/ML VIAL SQ SCH ×2 (16:41→23:55)
[2022-08-24] MEDS: MORPHINE SULFATE 2 MG/ML SYRINGE IVP PRN ×3 (16:45→23:56)
[2022-08-24] MEDS: HYDROCODONE/ACETAMINOPHEN 5-325 MG TABLET PO PRN (19:57)
[2022-08-24 20:38] LABS: APPEARANCE,URINE HAZY (CLEAR); GLUCOSE, URINE (UA) NEGATIVE (NEGATIVE); KETONES,URINE TRACE mg/dL (NEGATIVE); LEUKOCYTE ESTERASE ,URINE SMALL (NEGATIVE); NITRATE,URINE NEGATIVE (NEGATIVE); OCCULT BLOOD,URINE TRACE (NEGATIVE); PROTEIN,URINE 30-70 mg/dL (NEGATIVE); SPECIFIC GRAVITIY, URINE 1.022 (1.003-1.030)
[2022-08-24 20:44] LABS: AMPHET/METH SCREEN,URINE NEGATIVE (NEGATIVE); BARBITURATE SCREEN, URINE NEGATIVE (NEGATIVE); BENZODIAZEPINES SCREEN,URINE NEGATIVE (NEGATIVE); CANNABINOID SCREEN,URINE NEGATIVE (NEGATIVE); COCAINE SCREEN,URINE NEGATIVE (NEGATIVE); METHADONE SCREEN, URINE NEGATIVE (NEGATIVE); OPIATE SCREEN,URINE POSITIVE (NEGATIVE); PHENCYCLIDINE SCREEN,URINE NEGATIVE (NEGATIVE)
[2022-08-24 20:46] LABS: BILIRUBIN,URINE SMALL (NEGATIVE)
[2022-08-24 20:49] LABS: AMORPHOUS SEDIMENT,UR Few /LPF (None Seen); BACTERIA,URINE None Seen /HPF (None Seen); FINE GRANULAR CASTS,URINE 0-2 /LPF (None Seen); RBC,URINE 0-2 /HPF (0-2); SQUAMOUS EPITHELIAL CELL,UR Many /LPF (None Seen); WBC,URINE 0-2 /HPF (0-5)
[2022-08-24] MEDS: DOCUSATE SODIUM 100 MG CAPSULE PO SCH (20:51)
[2022-08-24 23:13] VITALS: BP 157/103
[2022-08-25 00:02] VITALS: BP 141/67
[2022-08-25] MEDS: MORPHINE SULFATE 2 MG/ML SYRINGE IVP PRN ×5 (04:30→20:12)
[2022-08-25 04:45] VITALS: BP 170/95
[2022-08-25] MEDS ORDERED: AmLODIPine BESYLATE 5 MG TABLET PO STA (05:30)
[2022-08-25 06:45] LABS: BASOPHILS % (AUTO) 0.7 % (0.0-2.0); EOSINOPHILS % (AUTO) 3.6 % (1.0-6.0); HEMATOCRIT 39.7 % (36-46); HEMOGLOBIN 13.7 g/dL (12.0-16.0); LYMPHOCYTES # (AUTO) 1.2 K/uL (1.0-4.8); MEAN CORPUSCULAR HEMOGLOBIN 33.9 pg (26.0-34.0); MEAN CORPUSCULAR HGB CONC 34.5 G/dL (31.0-37.0); MEAN CORPUSCULAR VOLUME 98 fL (80-100); MONOCYTES # (AUTO) 0.3 K/uL (0.1-1.0); MONOCYTES % (AUTO) 5.7 % (2.0-9.0); NEUTROPHILS # (AUTO) 3.2 K/uL (1.8-7.7); PLATELET COUNT (AUTO) 107 K/uL (150-450); RED BLOOD CELL COUNT(AUTO) 4.03 MIL/uL (4.00-5.20); RED CELL DISTRIBUTION WIDTH 13.5 % (11.5-14.5)
[2022-08-25 06:59] LABS: CALCIUM, TOTAL 7.7 mg/dL (8.8-10.5); CREATININE 1.14 mg/dL (0.60-1.30); MAGNESIUM 2.7 mg/dL (1.80-2.40)
[2022-08-25 07:28] LABS: POTASSIUM 2.8 mmol/L (3.5-5.1)
[2022-08-25] MEDS ORDERED: SODIUM CHLORIDE 0.9% 1,000 ML ONE (07:49)
[2022-08-25] MEDS: POTASSIUM CHL 10 MEQ/WATER 50 ML IV PRN ×4 (07:51→12:29)
[2022-08-25 08:00] VITALS: BP 178/108
[2022-08-25] MEDS: HYDROCODONE/ACETAMINOPHEN 5-325 MG TABLET PO PRN (08:07)
[2022-08-25] MEDS: DOCUSATE SODIUM 100 MG CAPSULE PO SCH ×2 (08:08→20:12)
[2022-08-25] MEDS: HEPARIN SODIUM,PORCINE 5,000 UNITS/ML VIAL SQ SCH ×3 (08:08→23:38)
[2022-08-25] MEDS: PANTOPRAZOLE SODIUM 40 MG DR TABLET PO SCH (08:45)
[2022-08-25 16:32] LABS: POTASSIUM 4.2 mmol/L (3.5-5.1)
[2022-08-25 16:38] VITALS: BP 154/101
[2022-08-25] MEDS: ALBUTEROL SULFATE HFA 90 MCG/PUFF 8 GM INHALER IH PRN (17:16)
[2022-08-25 20:09] VITALS: BP 143/87
[2022-08-26] MEDS: MORPHINE SULFATE 2 MG/ML SYRINGE IVP PRN ×6 (00:15→21:03)
[2022-08-26] MEDS: ALBUTEROL SULFATE HFA 90 MCG/PUFF 8 GM INHALER IH PRN (00:28)
[2022-08-26 04:36] VITALS: BP 174/93
[2022-08-26 07:19] LABS: ALANINE AMINOTRANSFERASE 96 U/L (12-78); ALBUMIN 2.7 g/dL (3.4-5.0); ALKALINE PHOSPHATASE 113 U/L (46-116); ANION GAP 10 mmol/L (8-16); ASPARTATE AMINOTRANSFERASE 67 U/L (15-37); BILIRUBIN,TOTAL 4.2 mg/dL (0.1-1.0); CALCIUM, TOTAL 7.7 mg/dL (8.8-10.5); CARBON DIOXIDE 25 mmol/L (22-29); CHLORIDE 104 mmol/L (98-107); CREATININE 0.88 mg/dL (0.60-1.30); GLOMERULAR FILTR. RATE CALC > 60 mL/min (>60); GLUCOSE,RANDOM 77 mg/dL (70-110); POTASSIUM 3.4 mmol/L (3.5-5.1); SODIUM SERUM 139 mmol/L (136-145); TOTAL PROTEIN, SERUM 5.4 g/dL (6.4-8.2); UREA NITROGEN, BLOOD 11 mg/dL (7-18)
[2022-08-26 07:38] LABS: EOSINOPHILS % (AUTO) 1.4 % (1.0-6.0); HEMATOCRIT 38.2 % (36-46); HEMOGLOBIN 13.1 g/dL (12.0-16.0); LYMPHOCYTES # (AUTO) 0.7 K/uL (1.0-4.8); LYMPHOCYTES % (AUTO) 12.6 % (22.0-44.0); MEAN CORPUSCULAR HEMOGLOBIN 33.7 pg (26.0-34.0); MEAN CORPUSCULAR HGB CONC 34.3 G/dL (31.0-37.0); MEAN CORPUSCULAR VOLUME 98 fL (80-100); MONOCYTES # (AUTO) 0.2 K/uL (0.1-1.0); MONOCYTES % (AUTO) 3.9 % (2.0-9.0); NEUTROPHILS # (AUTO) 4.7 K/uL (1.8-7.7); NEUTROPHILS % (AUTO) 81.1 % (40.0-70.0); RED BLOOD CELL COUNT(AUTO) 3.89 MIL/uL (4.00-5.20); RED CELL DISTRIBUTION WIDTH 13.4 % (11.5-14.5)
[2022-08-26 07:56] LABS: PLATELET COUNT (AUTO) 89 K/uL (150-450)
[2022-08-26 08:00] VITALS: BP 155/100
[2022-08-26] MEDS: PANTOPRAZOLE SODIUM 40 MG DR TABLET PO SCH (08:15)
[2022-08-26] MEDS: DOCUSATE SODIUM 100 MG CAPSULE PO SCH ×2 (08:15→20:02)
[2022-08-26] MEDS: HEPARIN SODIUM,PORCINE 5,000 UNITS/ML VIAL SQ SCH ×3 (08:15→23:24)
[2022-08-26] MEDS: AmLODIPine BESYLATE 5 MG TABLET PO SCH (08:15)
[2022-08-26] MEDS: POTASSIUM CHLORIDE 20 MEQ ER TABLET PO PRN (08:32)
[2022-08-26] MEDS: SODIUM CHLORIDE 0.9% 1,000 ML IV SCH ×2 (11:03→23:49)
[2022-08-26 14:54] VITALS: BP 155/92
[2022-08-26] MEDS: HYDROCODONE/ACETAMINOPHEN 5-325 MG TABLET PO PRN ×2 (15:01→20:02)
[2022-08-26 20:08] VITALS: BP 134/76
[2022-08-27] MEDS: MORPHINE SULFATE 2 MG/ML SYRINGE IVP PRN ×5 (03:47→20:38)
[2022-08-27 04:18] VITALS: BP 138/66
[2022-08-27 06:19] LABS: BASOPHILS % (AUTO) 0.6 % (0.0-2.0); EOSINOPHILS % (AUTO) 4.4 % (1.0-6.0); HEMATOCRIT 35.3 % (36-46); LYMPHOCYTES # (AUTO) 0.8 K/uL (1.0-4.8); LYMPHOCYTES % (AUTO) 20.3 % (22.0-44.0); MEAN CORPUSCULAR HEMOGLOBIN 33.8 pg (26.0-34.0); MEAN CORPUSCULAR HGB CONC 33.9 G/dL (31.0-37.0); MEAN CORPUSCULAR VOLUME 100 fL (80-100); MONOCYTES # (AUTO) 0.3 K/uL (0.1-1.0); MONOCYTES % (AUTO) 6.6 % (2.0-9.0); NEUTROPHILS # (AUTO) 2.7 K/uL (1.8-7.7); NEUTROPHILS % (AUTO) 68.1 % (40.0-70.0); PLATELET COUNT (AUTO) 71 K/uL (150-450); RED BLOOD CELL COUNT(AUTO) 3.54 MIL/uL (4.00-5.20); RED CELL DISTRIBUTION WIDTH 13.5 % (11.5-14.5)
[2022-08-27 06:36] LABS: ALANINE AMINOTRANSFERASE 72 U/L (12-78); ALBUMIN 2.4 g/dL (3.4-5.0); ALKALINE PHOSPHATASE 113 U/L (46-116); ANION GAP 8 mmol/L (8-16); ASPARTATE AMINOTRANSFERASE 47 U/L (15-37); BILIRUBIN,TOTAL 2.7 mg/dL (0.1-1.0); CALCIUM, TOTAL 7.8 mg/dL (8.8-10.5); CARBON DIOXIDE 25 mmol/L (22-29); CHLORIDE 107 mmol/L (98-107); CREATININE 0.82 mg/dL (0.60-1.30); GLUCOSE,RANDOM 71 mg/dL (70-110); LIPASE 917 U/L (73-393); POTASSIUM 3.2 mmol/L (3.5-5.1); SODIUM SERUM 140 mmol/L (136-145); TOTAL PROTEIN, SERUM 5.1 g/dL (6.4-8.2); UREA NITROGEN, BLOOD 10 mg/dL (7-18)
[2022-08-27 06:43] LABS: GLOMERULAR FILTR. RATE CALC > 60 mL/min (>60)
[2022-08-27 07:44] VITALS: BP 153/72
[2022-08-27] MEDS: DOCUSATE SODIUM 100 MG CAPSULE PO SCH ×2 (08:33→20:38)
[2022-08-27] MEDS: HEPARIN SODIUM,PORCINE 5,000 UNITS/ML VIAL SQ SCH ×2 (08:33→16:41)
[2022-08-27] MEDS: PANTOPRAZOLE SODIUM 40 MG DR TABLET PO SCH (08:33)
[2022-08-27] MEDS: AmLODIPine BESYLATE 5 MG TABLET PO SCH (08:33)
[2022-08-27] MEDS: POTASSIUM CHLORIDE 20 MEQ ER TABLET PO PRN (08:34)
[2022-08-27] MEDS: ALBUTEROL SULFATE HFA 90 MCG/PUFF 8 GM INHALER IH PRN ×2 (08:39→23:08)
[2022-08-27] MEDS ORDERED: GADOTERATE MEGLUMINE 10 MMOL/20 ML VIAL IVP ONE (09:53)
[2022-08-27] MEDS ORDERED: POTASSIUM CHL 10 MEQ/WATER 50 ML IV PRN (10:15)
[2022-08-27] MEDS ORDERED: POTASSIUM CHLORIDE 20 MEQ ER TABLET PO PRN (10:15)
[2022-08-27] MEDS ORDERED: SODIUM CHLORIDE 0.9% 1,000 ML IV ONE (10:15)
[2022-08-27] MEDS: SODIUM CHLORIDE 0.9% 1,000 ML IV SCH (12:41)
[2022-08-27 15:33] VITALS: BP 137/77
[2022-08-27 19:10] VITALS: BP 135/75
[2022-08-28] MEDS: HEPARIN SODIUM,PORCINE 5,000 UNITS/ML VIAL SQ SCH ×3 (00:05→16:22)
[2022-08-28] MEDS: MORPHINE SULFATE 2 MG/ML SYRINGE IVP PRN ×5 (01:34→19:30)
[2022-08-28 04:05] VITALS: BP 136/74
[2022-08-28] MEDS: SODIUM CHLORIDE 0.9% 1,000 ML IV SCH ×2 (05:21→16:45)
[2022-08-28] MEDS: AmLODIPine BESYLATE 5 MG TABLET PO SCH (08:39)
[2022-08-28] MEDS: DOCUSATE SODIUM 100 MG CAPSULE PO SCH ×2 (08:39→20:30)
[2022-08-28] MEDS: PANTOPRAZOLE SODIUM 40 MG DR TABLET PO SCH (08:40)
[2022-08-28 09:02] LABS: ALANINE AMINOTRANSFERASE 71 U/L (12-78); ALBUMIN 2.5 g/dL (3.4-5.0); ALKALINE PHOSPHATASE 135 U/L (46-116); ANION GAP 9 mmol/L (8-16); ASPARTATE AMINOTRANSFERASE 50 U/L (15-37); CALCIUM, TOTAL 8.3 mg/dL (8.8-10.5); CARBON DIOXIDE 24 mmol/L (22-29); CHLORIDE 106 mmol/L (98-107); CREATININE 0.76 mg/dL (0.60-1.30); LIPASE 373 U/L (73-393); POTASSIUM 4.1 mmol/L (3.5-5.1); SODIUM SERUM 139 mmol/L (136-145); TOTAL PROTEIN, SERUM 5.5 g/dL (6.4-8.2); UREA NITROGEN, BLOOD 6 mg/dL (7-18)
[2022-08-28] MEDS ORDERED: DEXTROSE 50%-WATER 25 GM/50 ML SYRINGE IVP ONE ×3 (09:11→09:45)
[2022-08-28 09:34] LABS: GLOMERULAR FILTR. RATE CALC > 60 mL/min (>60); GLUCOSE,RANDOM 47 mg/dL (70-110)
[2022-08-28] MEDS ORDERED: DEXTROSE 5%-0.9% SODIUM CHL 1,000 ML IV ONE (11:15)
[2022-08-28] MEDS ORDERED: IOHEXOL 240 MG/ML 20 ML VIAL ONE ×3 (12:24→14:23)
[2022-08-28] MEDS: PIPERACILLIN/TAZO 3.375 GM/D5W 50 ML IV SCH ×2 (13:31→18:16)
[2022-08-28 14:21] LABS: GLUCOMETER DEV NAME(LOC) 6N.2B; GLUCOSE,POINT OF CARE 49 MG/DL (70-110)
[2022-08-28 14:21] LABS: GLUCOMETER DEV NAME(LOC) 6N.2B; GLUCOSE,POINT OF CARE 165 MG/DL (70-110)
[2022-08-28] MEDS ORDERED: SODIUM CHLORIDE 0.9% 1,000 ML ONE (14:22)
[2022-08-28] MEDS ORDERED: HYDROmorphone HCL 2 MG/ML SYRINGE IVP PRN (15:45)
[2022-08-28] MEDS ORDERED: FentaNYL CITRATE PF 100 MCG/2 ML VIAL IVP PRN (15:45)
[2022-08-28] MEDS: ALBUTEROL SULFATE HFA 90 MCG/PUFF 8 GM INHALER IH PRN (16:44)
[2022-08-28 19:27] VITALS: BP 136/71
[2022-08-28] MEDS: OXYGEN THERAPY IH SCH (19:36)
[2022-08-29] MEDS: PIPERACILLIN/TAZO 3.375 GM/D5W 50 ML IV SCH ×4 (00:27→17:33)
[2022-08-29] MEDS: HEPARIN SODIUM,PORCINE 5,000 UNITS/ML VIAL SQ SCH ×3 (00:28→17:33)
[2022-08-29] MEDS: ALBUTEROL SULFATE HFA 90 MCG/PUFF 8 GM INHALER IH PRN ×2 (00:32→06:04)
[2022-08-29] MEDS: MORPHINE SULFATE 2 MG/ML SYRINGE IVP PRN ×4 (02:27→19:55)
[2022-08-29 03:26] LABS: GLUCOMETER DEV NAME(LOC) 6N.1; GLUCOSE,POINT OF CARE 125 MG/DL (70-110)
[2022-08-29 04:11] VITALS: BP 130/59
[2022-08-29] MEDS ORDERED: PROPOFOL 1% 20 ML VIAL IVP ONE (05:29)
[2022-08-29] MEDS ORDERED: SUCCINYLCHOLINE CHLORIDE 20 MG/ML 10 ML VIAL IVP ONE (05:29)
[2022-08-29] MEDS ORDERED: ONDANSETRON HCL 4 MG/2 ML VIAL IVP ONE (05:29)
[2022-08-29] MEDS ORDERED: LIDOCAINE/PF 2% 5 ML VIAL IM ONE (05:29)
[2022-08-29] MEDS ORDERED: MIDAZOLAM HCL 2 MG/2 ML VIAL IVP ONE (05:29)
[2022-08-29] MEDS ORDERED: FentaNYL CITRATE PF 100 MCG/2 ML VIAL IVP ONE (05:29)
[2022-08-29] MEDS ORDERED: GLUCAGON,HUMAN RECOMBINANT 1 MG VIAL IVP ONE (05:29)
[2022-08-29] MEDS: SODIUM CHLORIDE 0.9% 1,000 ML IV SCH ×2 (05:56→22:00)
[2022-08-29 07:51] LABS: GLUCOMETER DEV NAME(LOC) 6N.1; GLUCOSE,POINT OF CARE 89 MG/DL (70-110)
[2022-08-29] MEDS: OXYGEN THERAPY IH SCH ×2 (08:00→20:00)
[2022-08-29 08:02] VITALS: BP 149/75
[2022-08-29] MEDS: PANTOPRAZOLE SODIUM 40 MG DR TABLET PO SCH (08:23)
[2022-08-29] MEDS: DOCUSATE SODIUM 100 MG CAPSULE PO SCH ×2 (08:23→19:54)
[2022-08-29] MEDS: AmLODIPine BESYLATE 5 MG TABLET PO SCH (08:24)
[2022-08-29 12:20] LABS: ALANINE AMINOTRANSFERASE 68 U/L (12-78); ALBUMIN 2.6 g/dL (3.4-5.0); ALKALINE PHOSPHATASE 147 U/L (46-116); ANION GAP 3 mmol/L (8-16); ASPARTATE AMINOTRANSFERASE 45 U/L (15-37); BILIRUBIN,TOTAL 1.2 mg/dL (0.1-1.0); CALCIUM, TOTAL 8.3 mg/dL (8.8-10.5); CARBON DIOXIDE 31 mmol/L (22-29); CHLORIDE 106 mmol/L (98-107); GLOMERULAR FILTR. RATE CALC > 60 mL/min (>60); GLUCOSE,RANDOM 102 mg/dL (70-110); LIPASE 389 U/L (73-393); POTASSIUM 3.3 mmol/L (3.5-5.1); SODIUM SERUM 140 mmol/L (136-145); TOTAL PROTEIN, SERUM 5.5 g/dL (6.4-8.2); UREA NITROGEN, BLOOD 3 mg/dL (7-18)
[2022-08-29 12:49] LABS: BASOPHILS % (AUTO) 0.7 % (0.0-2.0); EOSINOPHILS % (AUTO) 4.3 % (1.0-6.0); HEMATOCRIT 35.5 % (36-46); HEMOGLOBIN 12.1 g/dL (12.0-16.0); LYMPHOCYTES # (AUTO) 0.9 K/uL (1.0-4.8); LYMPHOCYTES % (AUTO) 25.1 % (22.0-44.0); MEAN CORPUSCULAR HEMOGLOBIN 33.8 pg (26.0-34.0); MEAN CORPUSCULAR VOLUME 99 fL (80-100); MONOCYTES # (AUTO) 0.2 K/uL (0.1-1.0); MONOCYTES % (AUTO) 6.1 % (2.0-9.0); NEUTROPHILS # (AUTO) 2.3 K/uL (1.8-7.7); NEUTROPHILS % (AUTO) 63.8 % (40.0-70.0); PLATELET COUNT (AUTO) 83 K/uL (150-450); RED BLOOD CELL COUNT(AUTO) 3.57 MIL/uL (4.00-5.20); RED CELL DISTRIBUTION WIDTH 13.6 % (11.5-14.5)
[2022-08-29] MEDS: POTASSIUM CHLORIDE 20 MEQ ER TABLET PO PRN (13:42)
[2022-08-29 15:48] VITALS: BP 140/84
[2022-08-29 19:24] VITALS: BP 151/88
[2022-08-29] MEDS: HYDROCODONE/ACETAMINOPHEN 5-325 MG TABLET PO PRN (22:04)
[2022-08-30] MEDS: HEPARIN SODIUM,PORCINE 5,000 UNITS/ML VIAL SQ SCH ×2 (00:02→09:09)
[2022-08-30] MEDS: PIPERACILLIN/TAZO 3.375 GM/D5W 50 ML IV SCH ×2 (00:02→05:03)
[2022-08-30] MEDS: MORPHINE SULFATE 2 MG/ML SYRINGE IVP PRN ×3 (00:03→09:47)
[2022-08-30 03:30] VITALS: BP 142/80
[2022-08-30] MEDS: ALBUTEROL SULFATE HFA 90 MCG/PUFF 8 GM INHALER IH PRN (06:11)
[2022-08-30] MEDS: OXYGEN THERAPY IH SCH (08:00)
[2022-08-30] MEDS: DOCUSATE SODIUM 100 MG CAPSULE PO SCH (09:06)
[2022-08-30] MEDS: AmLODIPine BESYLATE 5 MG TABLET PO SCH (09:07)
[2022-08-30] MEDS: PANTOPRAZOLE SODIUM 40 MG DR TABLET PO SCH (09:07)
[2022-08-30] MEDS: SODIUM CHLORIDE 0.9% 1,000 ML IV SCH (09:08)
[2022-08-30 11:58] LABS: ALBUMIN 2.9 g/dL (3.4-5.0); BILIRUBIN,TOTAL 1.3 mg/dL (0.1-1.0); CALCIUM, TOTAL 8.7 mg/dL (8.8-10.5); CREATININE 0.99 mg/dL (0.60-1.30); POTASSIUM 4.3 mmol/L (3.5-5.1); TOTAL PROTEIN, SERUM 6.1 g/dL (6.4-8.2)
== END 2022-08-30 13:00 | disposition home or self-care (01) ==
LOC: EMS 09:23 → 6S 22:13
PROVIDERS: ADMIT Internal Medicine; ATTEND Internal Medicine
PROC: BF101ZZ Fluoroscopy of Bile Ducts using Low Osmolar Contrast (ICD-10-PCS; 2022-08-28)
PROC: 0FC98ZZ Extirpation of Matter from Common Bile Duct, Via Natural or Artificial Opening Endoscopic (ICD-10-PCS; principal; 2022-08-28 15:00)
DX: K80.50 Calculus of bile duct without cholangitis or cholecystitis without obstruction (principal); E43 Unspecified severe protein-calorie malnutrition; K70.40 Alcoholic hepatic failure without coma; K85.20 Alcohol induced acute pancreatitis without necrosis or infection; D69.6 Thrombocytopenia, unspecified; E87.6 Hypokalemia; K29.20 Alcoholic gastritis without bleeding; F10.239 Alcohol dependence with withdrawal, unspecified; G25.81 Restless legs syndrome; Z20.822 Contact with and (suspected) exposure to COVID-19; D72.819 Decreased white blood cell count, unspecified; E66.9 Obesity, unspecified; J45.909 Unspecified asthma, uncomplicated; G89.29 Other chronic pain; F32.A Depression, unspecified; R74.01 Elevation of levels of liver transaminase levels; Y90.9 Presence of alcohol in blood, level not specified; Z90.49 Acquired absence of other specified parts of digestive tract; Z68.33 Body mass index [BMI] 33.0-33.9, adult
CPT/HCPCS: 70490; 74176; 74183; 76700; 80048; 80053; 81001; 82962; 83690; 83735; 84132; 84484; 84702; 85025; 87430; 87804; 93005; 99285; J0330; J1610; J1644; J2060; J2250; J2270; J2405; J2543; J2704; J3010; J3411; J3475; J3480; J3490; J3535; J7030; J7042; Q9966

== ENCOUNTER 2025-05-13 13:05 | Emergency (ER) | payer OTHER ==
[~2025-05-13] VITALS: Ht 167.6 cm; Wt 97.7 kg
[~2025-05-13 13:05] MED LIST changes: +ALBU18HF12 IH; -ALBU8HFA IH; -FLUT1DIS4 IH; +IBUP-1506 PO; -OXYC-490 PO
[2025-05-13 13:11] VITALS: TEMP 98.4
[2025-05-13] MEDS ORDERED: CHLO25TA3 PO (13:14)
[2025-05-13] MEDS ORDERED: LEVO25TA9 PO (13:14)
[2025-05-13] MEDS ORDERED: SPIR-37 PO (13:14)
[2025-05-13] MEDS ORDERED: LOSA1TAB40 PO (13:14)
[2025-05-13] MEDS ORDERED: MONT-40 PO (13:14)
[2025-05-13] MEDS ORDERED: IBUP-1492 PO (13:40)
[2025-05-13] MEDS ORDERED: CYCL-448 PO (13:40)
[2025-05-13] MEDS: IBUPROFEN 600 MG TABLET PO ONE (13:56)
[2025-05-13] MEDS: LIDOCAINE 5% TRANSDERMAL PATCH TD ONE (13:57)
[2025-05-13 14:25] VITALS: BP 133/79; PULSE 82; RESP 18; O2SAT 97
== END 2025-05-13 14:32 | disposition home or self-care (01) ==
LOC: EMS 13:33
DX: M54.42 Lumbago with sciatica, left side (principal); E03.9 Hypothyroidism, unspecified; E78.00 Pure hypercholesterolemia, unspecified; I10 Essential (primary) hypertension; J45.909 Unspecified asthma, uncomplicated; F32.A Depression, unspecified; G89.29 Other chronic pain; F11.90 Opioid use, unspecified, uncomplicated; Z79.890 Hormone replacement therapy; Z90.49 Acquired absence of other specified parts of digestive tract; Z79.899 Other long term (current) drug therapy
CPT/HCPCS: 99283